=== PATIENT | female | born 1950 | race African-American/Black ===

== ENCOUNTER 2017-04-18 15:30 | Inpatient (IN) ==
[2017-04-18] MEDS ORDERED: NITROGLYCERIN 2% OINT 1 INCH/GM PACK TOP STA ×2 (15:49→18:57)
[2017-04-18] MEDS ORDERED: ONDANSETRON 4 MG/2 ML VIAL IV PRN (15:49)
[2017-04-18] MEDS ORDERED: ASPIRIN 325 MG TABLET PO STA (15:49)
--- NOTE | 2017-04-18 15:52 | EKG Report ---
Stationary ECG Study [facility] ER Test Date: 04/18/2017 3:36:52 PM Pat Name: ASHLEY MELGAR Department: Room: Gender: F Saw Filer: : 1950 Requested by: Jacky Barr Order Number: [id number] Reading MD: DM MARTE Intervals [place] Rate: 80 P: 49 KS: 152 QRS: -6 QRSD: 108 T: 126 QT: 397 QTc: 433 Interpretive Statements SINUS RHYTHM LEFT VENTRICULAR HYPERTROPHY AND ST-T CHANGE INFERIOR MYOCARDIAL INFARCTION, PROBABLY OLD Electronically Signed On 04-18-17 22:33:45 CDT by DM MARTE [email or web address]
[2017-04-18] MEDS ORDERED: NITROGLYCERIN 2% OINT 1 INCH/GM PACK TOP ONE ×2 (15:54→18:31)
[2017-04-18] MEDS ORDERED: ASPIRIN 325 MG TABLET ONE (15:54)
--- NOTE | 2017-04-18 15:54 | Emergency Department Note ---
Declan Gardner Manpreet, am scribing for, and in the presence of, Jacky Hatfield MD 15: 51. Alysia Gardner James D, MD, personally performed the services described in this documentation, ascribed by Demond Manriquez in my presence, and it is both accurate and complete 553 . Arrival - Arrival Chief Complaint: Abdominal / Flank Pain Stated Complaint: upper abd pain and left rib pain ED Nursing Triage Note: Upper abd pain and left rib pain onset x 30 min [employer] - pt had fentanyl 100mcg per EMS - pt denies fall - pt states that she is having some SOB and has been taking some cough and congestion Mode of Arrival: Stretcher Limitations: No Limitations Source: Patient - History of Present Illness HPI Narrative: Pt is a 66 y/o female who is brought to the ED via EMS with CC of CP that began 1100 this AM when she was just sitting down at home. Pt states the pain "goes all over" with tightness and c/o SOB. Pt has had heart stents placed in the past. Pt's PCP is Dr. Edwards. Pt denies any N/V/D, fever, or chills. No other pains/complaints reported to the ED. Onset (ago): hour(s) (11 AM) Consistency: constant Quality: other ("Tightness") Date of Last Menstrual Period: catrachito Allergies/Adverse Reactions: Allergies Allergy/AdvReac Type Severity Reaction Status Date / Time morphine Allergy Unknown/Unable Verified 03/08/17 18:18 to obtain Penicillins Allergy Unknown/Unable Verified 03/08/17 18:18 to obtain Home Medications: Home Medications Medication Instructions Recorded Confirmed Type Fluticasone 50 Mcg Nasal Jackson 1 spray BOTH NARES DAILY 03/16/15 03/08/17 History [Flonase Nasal Jackson] Pantoprazole Tab [Protonix Tab] 40 mg PO AC SUPPER 03/16/15 03/08/17 History hydroCHLOROthiazide 25 mg PO DAILY 04/08/16 03/08/17 History [Hydrochlorothiazide] Aspirin EC Tab 81 mg PO DAILY 09/14/16 03/08/17 History Atorvastatin [Lipitor] 20 mg PO BEDTIME 09/14/16 03/08/17 History Insulin Detemir [Levemir] 25 units SUBCUT BEDTIME 09/14/16 03/08/17 History Sertraline HCl 100 mg PO DAILY 09/14/16 03/08/17 History Valsartan 320 mg PO DAILY 09/14/16 03/08/17 History Loratadine Tab [Claritin Tab] 10 mg PO DAILY PRN 01/20/17 03/08/17 History Ondansetron [Ondansetron Odt] 8 mg PO Q4H PRN #10 tab.rapdis 03/08/17 Rx Sulfameth/Trimeth 800-160 Tab 1 tablet PO BID #20 tablet 03/08/17 Rx [Bactrim Ds Tab] hydrALAZINE TAB [Apresoline Tab] 100 mg PO BID 03/08/17 03/08/17 History Review of System - Review of System 12 point system: reviewed and no additional remarkable complaints except as stated - Review of System Constitutional: Absent: chills, diaphoresis, fever Respiratory: Present: respiratory distress, other (Cognestion). Absent: cough, wheezing Cardiovascular: Present: chest pain Gastrointestinal: Absent: abdominal pain, nausea, vomiting, diarrhea Genitourinary female: Absent: dysuria Musculoskeletal: Absent: arm pain, back pain Neurological: Absent: headache, weakness, numbness, paresthesias Medical,Surgical,& Family Hx - Medical History Cardio: History of: Hypertension Neurology: History of: Cerebrovascular Accident Endocrine: History of: Diabetes Mellitus (IDDM), Dyslipidemia Gastrointestinal: History of: GERD Musculoskeletal: History of: Amputation (LEFT BKA) - Family History Family History: Reports;: Family Diabetes, Family Hypertension - Social History Smoking Status: Never smoker Frequency of Alcohol Use: None Type of Drug Use: None Exam Vital Signs: Vital Signs Temperature 98.2 F 04/18/17 15:36 Pulse Rate 79 04/18/17 16:19 Respiratory Rate 20 04/18/17 16:19 Blood Pressure 101/41 04/18/17 16:19 O2 Sat by Pulse Oximetry 99 04/18/17 16:19 GENERAL: This is a well-nourished well-developed chronically ill-appearing black female in no apparent distress. VITAL SIGNS: Reviewed HEENT: Head is atraumatic and normocephalic. Pupils are equal round react to light. Extraocular movements are intact. Oropharynx is benign with moist mucous membranes. NECK: Neck is soft and supple without tenderness. There are no masses. There is no lymphadenopathy. LUNGS: Lungs are clear to auscultation. Chest rises symmetrically. There is no chest wall tenderness. CV: Heart is regular rate and rhythm without murmurs rubs or gallops. ABDOMEN: Abdomen is soft, nontender to palpation. There are no abdominal abnormal masses palpated. There is no organomegaly. Bowel sounds are present and active. SKIN: Skin is warm and dry. No rash. EXTREMITIES: Left BKA. There is no pedal edema. NEUROLOGIC: Awake alert and oriented 4. Cranial nerves II through XII are grossly intact. Motor is 5 over 5 in all extremities bilaterally. Course - Consultations Consultation #1: Discussed with hospitalist. Patient will be admitted to their service. Time: 17:28 Results - Labs CBC & BMP: 04/18/17 16:19 04/18/17 16:19 Lab Results: I have reviewed the patients labs Labs: Laboratory Tests 04/18/17 16:19 Troponin I < 0.015 - EKG EKG results: interpreted by ERMD - Impressions EKG: Normal sinus rhythm with a rate of 80, LVH, old inferior DE. - Diagnostic Findings Procedure: Chest x-ray: image reviewed by me (Atelectatic changes of the lower lobes bilaterally.) Disposition Clinical Impression: Chest pain, Essential hypertension, CKD (chronic kidney disease) Case discussed with: patient Disposition: Still a Patient Condition: Stable Time of Disposition: 17:28
--- NOTE | 2017-04-18 16:11 | XRay Report ---
History: Chest pain Date: 04/18/2017 Study: Chest x-ray AP portable Comparison exam: March 08, 2017 There is continued cardiomegaly. The mediastinal contours are unchanged. The pulmonary vasculature is slightly prominent, though the exam was performed in shallow inspiration. There is some platelike atelectatic change in the lung bases similar to the previous exam. There is no obvious new or worsening infiltrate. There is no gross pleural effusion. Osseous structures are similar. Impression: Cardiomegaly without overt CHF. Evaluation of the pulmonary vasculature is difficult to evaluate because of shallow inspiration. Platelike atelectasis in the lung bases similar to the previous study PROCEDURE INTERPRETED AT [facility] DEPARTMENT OF RADIOLOGY Final Report Signed by: Dr. Roopa Torres
[2017-04-18 16:29] LABS: Basophils # 0.1 10*3/uL (0.0-0.2); Basophils % 0.9 % (0.0-0.8); Eosinophils # 0.3 10*3/uL (0.0-0.87); Eosinophils % 4.3 % (0.00-10.9); Hematocrit 32.7 VOL% (35.7-47.0); Hemoglobin 10.7 GM/DL (12.0-16.0); Immature Granulocytes % 0.3 %; Immature Granulocytes Absolute 0.02 #; Lymphocytes % 31.3 % (21.3-54.2); Mean Corpuscular HGB Conc 32.7 GM/DL (32-36); Mean Corpuscular Hemoglobin 29 PG (27-34); Mean Corpuscular Volume 89.6 FL (87-102); Mean Platelet Volume 11.2 FL (9.6-12.0); Monocytes # 0.4 10*3/uL (0.11-0.8); Neutrophils # 3.7 10*3/uL (1.4-7.4); Neutrophils % 57.2 % (38.7-73.9); Platelet Count 137 T/CUMM (130-400); Red Blood Count 3.65 MC/CUMM (3.8-5.5); Red Cell Distribution Width 13.4 % (9.3-17.3); White Blood Count 6.5 T/CUMM (4-12)
[2017-04-18 16:40] LABS: PT Patient Result 11.1 SECS; Partial Thromboplastin Time 29.1 SECS (0-40)
[2017-04-18 16:48] LABS: Albumin 3.6 G/DL (3.4-5.0); Bilirubin,Total 0.4 MG/DL (0.2-1.0); Calcium 8.7 MG/DL (8.5-10.1); Osmolality,Calculated 293.3 MOS/KG (273-304); Total Protein 7.7 G/DL (6.4-8.3)
--- NOTE | 2017-04-18 17:46 | XRay Report ---
History: Chest pain Date: 04/18/2017 at 5:07 PM Study: Chest x-ray AP portable Comparison exam: 04/18/2017 at 3:54 PM There is continued mild cardiomegaly. The mediastinal contours are unchanged. The exam was performed in shallow inspiration. There is strandy atelectatic change in the lower lungs, left more than right, as before. There is no gross pleural effusion. Osseous structures are unchanged. Impression: Continued left greater than right bibasilar atelectasis. Cardiomegaly without overt CHF. Shallow breath PROCEDURE INTERPRETED AT [facility] DEPARTMENT OF RADIOLOGY Final Report Signed by: Dr. Roopa Torres
--- NOTE | 2017-04-18 18:40 | Hospitalist History & Physical ---
<Noah Petty - Last Filed: 04/18/17 18:47> History of Present Illness Home Medications Medication Instructions Recorded Confirmed Type Pantoprazole Tab [Protonix Tab] 40 mg PO AC SUPPER 03/16/15 04/18/17 History hydroCHLOROthiazide 25 mg PO QAM 04/08/16 04/18/17 History [Hydrochlorothiazide] Aspirin EC Tab 81 mg PO QAM 09/14/16 04/18/17 History Atorvastatin [Lipitor] 20 mg PO BEDTIME 09/14/16 04/18/17 History Insulin Detemir [Levemir] 25 units SUBCUT BEDTIME 09/14/16 04/18/17 History Sertraline HCl 100 mg PO QAM 09/14/16 04/18/17 History Valsartan 320 mg PO QAM 09/14/16 04/18/17 History Loratadine Tab [Claritin Tab] 10 mg PO DAILY PRN 01/20/17 04/18/17 History hydrALAZINE TAB [Apresoline Tab] 100 mg PO BID 03/08/17 04/18/17 History Allergies Allergy/AdvReac Type Severity Reaction Status Date / Time morphine Allergy Unknown/Unable Verified 03/08/17 18:18 to obtain Penicillins Allergy Unknown/Unable Verified 03/08/17 18:18 to obtain Medical,Surgical,& Family Hx - Medical History Cardio: History of: ND - Surgical History Cardiac Surgeries: Sugical HX of: Cardiac Catheterization - Social History Marital Status: Single Lives With:: Alone Functional capacity: wheelchair bound - Constitutional Constitutional: Present: fatigue, lethargy, weakness. Absent: headache(s) - EENT Eyes: Absent: blurry vision, loss of vision Nose, mouth and throat: Absent: headache(s), sinus pressure - Cardiovascular Cardiovascular: Present: chest pain at rest, chest pain with activity. Absent: dyspnea, edema - Respiratory Respiratory: Absent: cough, wheezing, pain on inspiration - Gastrointestinal Gastrointestinal: Absent: abdominal pain, bloating, diarrhea, nausea - Genitourinary Genitourinary: Absent: difficulty urinating, hematuria - Musculoskeletal Musculoskeletal: Present: limited range of motion, muscle weakness - Neurological Neurological: Present: abnormal gait (Lt BKA, prosthesis and wheelchair), numbness - Psychiatric Psychiatric: Absent: anxiety - Endocrine Endocrine: Present: fatigue. Absent: cold intolerance, heat intolerance - Hematologic/Lymphatic Hematologic/Lymphatic: Absent: easy bleeding, easy bruising Exam - Constitutional Vitals: Period Temp Pulse Resp BP Sys/Cueva Pulse Ox Last 24 Hr 98.2 F-98.2 F 75-97 20-20 101-193/41-91 99-100 Results - Labs CBC & BMP: 04/18/17 16:19 04/18/17 16:19 <WhiteLakesha R - Last Filed: 04/18/17 19:33> Assessment and Plan (1) Left-sided weakness Status: Acute Assessment and plan: MRI of brain, cont aspirin Current Visit: Yes (2) Shortness of breath Status: Acute Assessment and plan: Is complaining to nursing about left-sided rib pain will order rib series, will order BNP and echo Current Visit: Yes (3) Anemia Status: Acute Assessment and plan: We will monitor, need to guaiac stools Current Visit: Yes (4) Diabetes mellitus Status: Chronic Assessment and plan: Hgb A1c, insulin sliding scale Current Visit: No Qualifiers: Diabetes mellitus type: type 2 (5) Chest pain Status: Acute Assessment and plan: Serial troponin and EKG Current Visit: Yes (6) Essential hypertension Status: Acute Assessment and plan: Restart home meds Current Visit: Yes (7) CKD (chronic kidney disease) Status: Acute Assessment and plan: Ultrasound renal Current Visit: Yes History of Present Illness Chief complaint: chest pain History of present illness: Ms. Arriaga is a 66 year old female brought to the ED via EMS with CC of CP that began 1100 this AM when she was just sitting down at home eating. Patient reports started in her abdomen and radiated to her chest. Patient rather lethargic and not readily answering questions. Daughter granddaughter is at bedside. 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 Patient is supposedly had multiple heart stents in the past and sees Dr. Edwards is her primary care physician. She reports some shortness of breath. We learned from nursing that they applied Nitropaste and her blood pressure dropped. Her chest pain is come back when the Nitropaste was removed and will give asked them to put another half inch on. She does complain of shortness of breath she also complained of some left- sided rib pain and was given fentanyl in the ambulance. Patient is morbidly obese and probably has some sleep apnea issues. She is not forthright in her answers and is considered a poor historian at this time. Medical,Surgical,& Family Hx - Medical History Cardio: History of: Hypertension Neurology: History of: Cerebrovascular Accident Endocrine: History of: Diabetes Mellitus (IDDM), Dyslipidemia Gastrointestinal: History of: GERD Musculoskeletal: History of: Amputation (LEFT BKA) - Family History Family History: Reports;: Family Diabetes, Family Hypertension - Social History Smoking Status: Never smoker Frequency of Alcohol Use: None Type of Drug Use: None Exam - Constitutional Vitals: Period Temp Pulse Resp BP Sys/Cueva Pulse Ox Last 24 Hr 98.2 F-98.2 F 75-97 20-20 101-193/41-91 99-100 General appearance: mild distress, over weight - Head Head exam: Present: normal inspection, normocephalic - Eye Eye exam: Present: EOMI. Absent: scleral icterus Pupils: Present: WHITNEY, normal accommodation - ENT ENT exam: Present: normal exam, normal external ear exam - Neck Neck exam: Absent: lymphadenopathy, thyromegaly - Respiratory Respiratory exam: Present: clear to auscultation bilaterally, decreased breath sounds. Absent: rhonchi, wheezes - Cardiovascular Cardiovascular exam: Present: regular rate and rhythm. Absent: systolic murmur - GI/Abdominal GI/Abdominal exam: Present: normal bowel sounds, soft. Absent: tenderness - Extremities Exam Extremities exam: Present: normal inspection, normal capillary refill - Neurological Exam Neurological exam: Present: alert, oriented X3, motor sensory deficit (Left- sided weakness), reflexes normal - Psychiatric Psychiatric exam: Present: depressed, flat affect - Skin Skin exam: Present: normal color, warm Results - Labs CBC & BMP: 04/18/17 16:19 04/18/17 16:19 Lab Results: I have reviewed the past 24 hour labs - EKG EKG shows: sinus rhythm (Q waves in lead III) - Diagnostic Findings Procedure: Chest x-ray: report reviewed by me (Bibasilar atelectasis)
[2017-04-18 18:59] LABS: Risk Ratio 3.55; VLDL CHOLESTEROL 20.4 MG/DL
--- NOTE | 2017-04-18 19:45 | XRay Report ---
History: Left-sided chest pain Date: 04/18/2017 Study: Left RIBS AP and oblique Comparison exam: No previous left rib series available There is no acute left rib fracture. There is no obvious pneumothorax or pleural effusion on the left. There are moderate-sized cervical ribs bilaterally. Impression: No acute left rib abnormality. Cervical ribs PROCEDURE INTERPRETED AT [facility] DEPARTMENT OF RADIOLOGY Final Report Signed by: Dr. Roopa Torres
--- NOTE | 2017-04-18 19:49 | Ultrasound Report ---
History: Renal failure Date: 04/18/2017 Study: Renal ultrasound bilateral, kidneys only Comparison exam: No previous recent similar study Real-time ultrasound images are captured and archived. The right kidney measures 97 x 44 x 46 mm; the left kidney measures 86 x 48 x 48 mm. There is no hydronephrosis or abnormal perinephric fluid. The renal parenchyma is of slightly increased echogenicity diffusely compared to the liver. There is no focal renal mass. Impression: There is evidence of some diffuse mild medical renal parenchymal disease. No significant abnormality otherwise PROCEDURE INTERPRETED AT [facility] DEPARTMENT OF RADIOLOGY Final Report Signed by: Dr. Roopa Torres
[2017-04-18] MEDS ORDERED: INSULIN GLARGINE 100 UNIT/ML SUBCUT SCH (21:00)
[2017-04-18] MEDS ORDERED: ATORVASTATIN 20 MG TABLET PO SCH (21:00)
[2017-04-18] MEDS ORDERED: ENOXAPARIN 30 MG/0.3 ML SYRINGE SUBCUT SCH (21:00)
[2017-04-18] MEDS: PANTOPRAZOLE 40 MG TABLET PO SCH (22:31)
[2017-04-18] MEDS: SODIUM CHLORIDE 0.9% 1,000 ML IV SCH (22:41)
[2017-04-19] MEDS: SODIUM CHLORIDE 0.9% 1,000 ML IV SCH ×3 (03:12→16:53)
[2017-04-19 07:39] LABS: Basophils # 0.1 10*3/uL (0.0-0.2); Basophils % 1.2 % (0.0-0.8); Eosinophils # 0.3 10*3/uL (0.0-0.87); Eosinophils % 5.6 % (0.00-10.9); Hematocrit 30.2 VOL% (35.7-47.0); Hemoglobin 9.9 GM/DL (12.0-16.0); Immature Granulocytes % 0.4 %; Immature Granulocytes Absolute 0.02 #; Lymphocytes # 1.9 10*3/uL (1.4-4.0); Lymphocytes % 36.7 % (21.3-54.2); Mean Corpuscular HGB Conc 32.8 GM/DL (32-36); Mean Corpuscular Hemoglobin 30 PG (27-34); Mean Corpuscular Volume 90.1 FL (87-102); Mean Platelet Volume 10.8 FL (9.6-12.0); Monocytes # 0.5 10*3/uL (0.11-0.8); Monocytes % 9.5 % (1.7-12.7); Neutrophils # 2.4 10*3/uL (1.4-7.4); Neutrophils % 46.6 % (38.7-73.9); Platelet Count 122 T/CUMM (130-400); Red Blood Count 3.35 MC/CUMM (3.8-5.5); Red Cell Distribution Width 13.5 % (9.3-17.3); White Blood Count 5.2 T/CUMM (4-12)
[2017-04-19 08:04] LABS: Calcium 8.5 MG/DL (8.5-10.1); Osmolality,Calculated 296.7 MOS/KG (273-304); Potassium 4.6 MMOL/L (3.5-5.1)
[2017-04-19] MEDS ORDERED: ASPIRIN EC 81 MG TABLET PO SCH (09:00)
--- NOTE | 2017-04-19 12:49 | Magnetic Resonance Report ---
MRI brain without contrast Indication: Left side weakness Comparison: None available Technique: Axial sagittal and coronal imaging of the brain is performed without contrast. T1, T2, FLAIR and diffusion weighted sequences are performed. Findings: No evidence of restricted diffusion seen. No evidence of intracranial hemorrhage, mass, mass effect or midline shift is seen. There is moderate diffuse cerebral atrophy. There are areas of white matter T2 signal hyperintensity in both cerebral hemispheres, likely chronic microvascular disease. Remaining brain parenchyma has normal signal and differentiation. The ventricles and cisterns are appropriate in caliber. Posterior fossa, mid brain and pituitary gland appear within normal limits. No evidence of cranial or skull base abnormality seen. Impression: No evidence of acute infarct or acute process demonstrated. PROCEDURE INTERPRETED AT [facility] DEPARTMENT OF RADIOLOGY Final Report Signed by: Dr. Kimo Quigley
--- NOTE | 2017-04-19 14:02 | ECHO Report ---
Denisse Arriaga 04/19/2017 Exam Date: 08:12 Referring Physician: Britt Mayen Technologist: JAYA Age: 66 Ht (in): 62 Wt (lb): 188 FExam Location: [facility] Gender: Echo [id number]: Chest pain, unspecified, Weakness, Indications:Chronic fatigue, unspecified, Shortness of breath, Anemia, IDDM, Chronic kidney disease, unspecified BP: 134 / 62 HR: 75 SinusRhythm: Technical Quality: IMPRESSIONS Normal left ventricular cavity size. Mild concentric left ventricular hypertrophy. Left ventricular ejection fraction is estimated at 65%. Grade 1 diastolic dysfunction. The left atrium is mildly enlarged. Aortic valve sclerosis, without stenosis. No insufficiency Mild pulmonary hypertension. MEASUREMENTS (Male / Female) Normal Values 2D ECHO LV Diastolic Diameter PLAX 4.1 cm 4.2 - 5.9 / 3.9 - 5.3 cm LV Systolic Diameter PLAX 2.8 cm LV Fractional Shortening PLAX 30.5 % IVS Diastolic Thickness 1.1 cm 0.6 - 1.0 / 0.6 - 0.9 cm LVPW Diastolic Thickness 1.1 cm 0.6 - 1.0 / 0.6 - 0.9 cm RV Internal Dim ED PLAX 2.7 cm Aortic Root Diameter 3.1 cm LA Systolic Diameter LX 3.7 cm 3.0 - 4.0 / 2.7 - 3.8 cm DOPPLER TR Peak Velocity 301.0 cm/s TR Peak Gradient 36.2 mmHg FINDINGS Left Ventricle Normal left ventricular cavity size. Mild concentric left ventricular hypertrophy. Left ventricular ejection fraction is estimated at 65%. Grade 1 diastolic dysfunction. Right Ventricle The right ventricle is normal in size and function. Right Atrium The right atrium is normal in size. Left Atrium The left atrium is mildly enlarged. Mitral Valve Morphologically normal mitral valve without significant stenosis or prolapse. There is no mitral regurgitation. Aortic Valve Aortic valve sclerosis, without stenosis. No insufficiency Tricuspid Valve Morphologically normal tricuspid valve. Mild tricuspid valve regurgitation. Tricuspid regurgitation velocities suggest a PAP of 46 mmHg. Pulmonic Valve Morphologically normal pulmonic valve without significant stenosis. There is no pulmonic regurgitation. Pericardium Normal pericardium without effusion. Aorta Normal ascending aorta dimension. Harsha Everett (Electronically Signed) 19 April 2017 Final Date: 14:01
--- NOTE | 2017-04-19 15:07 | Gastrointestinal Consult Note ---
Assessment and Plan (1) Dysphagia, pharyngoesophageal Status: Acute Assessment and plan: The patient does have some difficulty swallowing and likely has atypical chest pain as a result of either spasm or esophagitis. We will assess this on Monday , 04/21/17 hopefully after cardiology is completed their evaluation. If she is not placed on interim anticoagulation we can certainly consider doing a esophageal dilation, likely to 57 Uzbek after ruling out esophageal cancer as a potential cause for her dysphagia. Other possibilities include esophageal spasm, reflux esophagitis, eosinophilic esophagitis and Schatzki's ring. Further recommendations post upper endoscopy and colonoscopy to occur Monday. Prep instructions written. Risks and benefits the above procedure were reviewed with the patient previously include but are not limited to: Bleeding, infection, perforation, cardiac and pulmonary compromise. Risk of perforation increases with dilation. Current Visit: Yes (2) Generalized abdominal pain Status: Acute Assessment and plan: This patient does have what sounds like classic variant irritable bowel syndrome with mild alternating diarrhea and constipation. Will be performing colonoscopy mostly for colorectal cancer screening purposes and to see if we can find a cause for the patient's mild anemia. Her hematocrit is about 30%. Certainly the patient's low-grade pain may be associated with this IBS. Because of her diarrhea we might consider doing routine biopsies to the colon-- we will have to see what level of inflammation is present. Current Visit: Yes (3) Anemia Status: Acute Assessment and plan: Hematocrit is 30.2 with hemoglobin of 9.9, I have asked the nursing staff to place an NG tube for purposes of prepping patient tomorrow if needed. Given her symptoms I suspect it will be. She will be given a GoLYTELY prep in order to check the colon completely. Current Visit: Yes (4) Atypical chest pain Status: Acute Assessment and plan: As mentioned above the patient may have esophageal spasm, reflux esophagitis, eosinophilic esophagitis versus Schatzki's ring, performed upper endoscopy with dilation as needed. Current Visit: Yes History of Present Illness Chief complaint: Dysphagia and anemia History of present illness: Ms. Arriaga is a 66 year old female who was seen in the office last on 02/24/17 and who was complaining at that time of generalized abdominal pain mostly in the epigastric and right upper quadrant regions as well as dysphagia that have been going on for approximately 4 years. She had a previous upper endoscopy done on 05/01/14 which revealed a hiatal hernia mild distal esophagitis and esophageal stricture that was dilated to 52 Uzbek by single pass Mandujano dilator. She did get some significant relief from the dilation and was placed on pantoprazole. She has had no reflux symptoms lately but feels that food is getting stuck in her throat with increasing regularity which has been worsening over the last 2 years. Patient also has diarrhea with multiple liquid stools starting approximately one week ago but no blood or melena. The patient had a previous colonoscopy done by Dr. Torres back on 10/05/15 which was notable for poor bowel prep was otherwise unremarkable aside from some small internal hemorrhoids. She had been to the emergency room as recently as 01/20/17 and was found to be mildly anemic with hematocrit of 34.0 and hemoglobin of 10.8. Platelet count was 1:30 which is lower limits of normal and white blood cell count was 7.0. The patient is currently being followed by Dr. Ashley Edwards as an outpatient. Her hematocrit here has dropped down to 30.2 with hemoglobin 9.9 , white blood cell count 5.2 and platelets that are now down to 122 suggestive of cirrhosis or ITP. The patient's LFTs are just about completely normal. This patient was placed on Protonix 40 mg daily starting on 02/24/17 and was due to be scheduled for colonoscopy and EGD. She apparently missed her endoscopic appointments. She feels difficulty with swallowing past her throat. Additionally she states that she has chest pain that feels like a large balloon inflating in her left chest and makes her arms tingle. She is being worked up by cardiology now. She also states that she is having some blood in her stools but was guaiac negative when I saw her in the office back in February, have not rechecked her today. Her hematocrit is comparable to what it was at that time. We will be performing both EGD and colonoscopy on Monday, provided she is not aggressively anticoagulated in the interim. Home Medications Medication Instructions Recorded Confirmed Type Pantoprazole Tab [Protonix Tab] 40 mg PO AC SUPPER 03/16/15 04/19/17 History hydroCHLOROthiazide 25 mg PO QAM 04/08/16 04/19/17 History [Hydrochlorothiazide] Aspirin EC Tab 81 mg PO QAM 09/14/16 04/19/17 History Atorvastatin [Lipitor] 20 mg PO BEDTIME 09/14/16 04/19/17 History Insulin Detemir [Levemir] 25 units SUBCUT BEDTIME 09/14/16 04/19/17 History Sertraline HCl 150 mg PO QAM 09/14/16 04/19/17 History Valsartan 320 mg PO QAM 09/14/16 04/19/17 History Loratadine Tab [Claritin Tab] 10 mg PO DAILY PRN 01/20/17 04/19/17 History hydrALAZINE TAB [Apresoline Tab] 100 mg PO BID 03/08/17 04/19/17 History Allergies Allergy/AdvReac Type Severity Reaction Status Date / Time morphine Allergy Unknown/Unable Verified 03/08/17 18:18 to obtain Penicillins Allergy Unknown/Unable Verified 03/08/17 18:18 to obtain Medical,Surgical,& Family Hx - Medical History Cardio: History of: Hypertension, [place] Neurology: History of: Cerebrovascular Accident Endocrine: History of: Diabetes Mellitus (IDDM), Dyslipidemia Renal: History of: Renal Failure Gastrointestinal: History of: GERD Musculoskeletal: History of: Amputation (LEFT BKA) - Surgical History Cardiac Surgeries: Sugical HX of: Cardiac Catheterization (W/ MULTIPLE STENTS) - Family History Family History: Reports;: Family Diabetes, Family Hypertension - Social History Smoking Status: Never smoker Frequency of Alcohol Use: None Type of Drug Use: None Review of systems: Constitutional: Denies fever, chills, but positive for recent nausea, and vomiting Eyes: Denies dry eyes, and scleral icterus HENT: She does have occasional headaches Cardiovascular: She admits to some acute chest pain but no claudication Respiratory: Denies shortness of breath, wheezing, and difficulty breathing, denies cough Gastrointestinal: As noted in the HPI Genitourinary: Denies dysuria and hematuria Neurologic: Denies vision loss, and loss of sensation Musculoskeletal: Denies joint swelling, but admits to joint stiffness, and muscular weakness Psychiatric: Denies depression and odalis symptoms, but seems to have some dementia. Heme-Lymph: Denies easy bruising, lymph node enlargement or tenderness, night sweats, excessive bleeding Allergies-immunologic: Denies pruritus and rhinorrhea Exam - Constitutional Vitals: Period Temp Pulse Resp BP Sys/Cueva Pulse Ox Last 24 Hr 97.5 F-98.8 F 72-97 16-20 101-193/41-91 97-100 Exam: Constitutional: Well-developed, well-nourished, alert, and in no acute distress Head and face: Head: Normocephalic atraumatic Eyes: Conjunctiva without injection, no gross scleral icterus, pupils equal and round bilaterally Ears: Intact to conversation in both ears Nose: External appearance is normal, nares patent Mouth: Oral mucous membranes moist without erythema dentition noted to be without erosion Neck: Normal appearance, no masses or tenderness, trachea midline Thyroid: Gland midline and appropriate size for age Respiratory: Normal respiratory effort, clear to auscultation without wheezes, rhonchi or rales Cardiovascular: Regular rate and rhythm, normal S1, S2, the exam is without rubs, murmurs or gallops. Gastrointestinal: The patient does have some mild epigastric and left lower quadrant tenderness to palpation, normal active bowel sounds, tone normal without rigidity or guarding, no masses present, no hepatomegaly, no spleen tip felt. No rectal exam obtained. Lymphatic: Neck without adenopathy, axilla without lymphadenopathy present Musculoskeletal: Right lower extremity without evidence of edema note that this patient has a left-sided BKA, the stump appears well-healed and without breakdown/excessive edema. Skin and subcutaneous tissue: No rashes or ulcerations noted, normal skin turgor, digits and nails without clubbing/cyanosis/deformities. Neurologic: The patient is grossly oriented to person place and time, cranial nerves show tongue movements are normal with normal tongue extrusion midline, light touch sensation is intact. Psychiatric: No hallucinations or delusions are present, does not appear depressed Results - Labs CBC & BMP: 04/19/17 07:27 04/19/17 07:27
--- NOTE | 2017-04-19 16:48 | Hospitalist Progress Note ---
Assessment and Plan (1) Left-sided weakness Status: Acute Assessment and plan: MRI of brain negative for any evidence of stroke. Will DC aspirin due to anemia. Current Visit: Yes (2) Shortness of breath Status: Acute Assessment and plan: Echocardiogram showed a normal EF with grade 1 diastolic dysfunction. Chest x- ray shows no evidence of pulmonary edema, BNP is normal. Current Visit: Yes (3) Anemia Status: Acute Assessment and plan: Dr. Khan feels patient will need a colonoscopy and an EGD. Patient will most likely not drink all of the prep. Dr. Khan feels she should have an NG to get all of her needed prep. Current Visit: Yes (4) Diabetes mellitus Status: Chronic Assessment and plan: Hgb A1c 7.3, continue insulin sliding scale, will hold Lantus at bedtime due to colonoscopy. Current Visit: No Qualifiers: Diabetes mellitus type: type 2 (5) Chest pain Status: Acute Assessment and plan: Cardiology has seen patient and believes her chest pain is atypical. They will do a stress test in the morning. Patient most likely has chest pain secondary to dysphasia. Dr. Khan would like to do an EGD on Monday. Continue Protonix 40 mg twice daily Current Visit: Yes (6) Essential hypertension Status: Chronic Assessment and plan: Controlled Current Visit: Yes (7) CKD (chronic kidney disease) Status: Chronic Assessment and plan: Ultrasound renal shows medical renal disease consistent with chronic stage III renal disease Current Visit: Yes Hospitalist: Subjective Interval history: Patient has spoke with nursing and reported to her that she had difficulty swallowing. Dr. Cardona was supposed to see her as an outpatient we have asked him to come and see her as an inpatient and he agrees she has dysphasia and probably needs dilation for possible stricture. He also did an evaluation of this generalized abdominal pain that she is speaking out of and it sounds more like irritable bowel. Dr. Cardona is asked nursing to place an NG to prep her with GoLYTELY for colonoscopy. Exam - Constitutional Vitals: Period Temp Pulse Resp BP Sys/Cueva Pulse Ox Last 24 Hr 97.5 F-99.4 F 72-106 16-20 123-179/58-89 96-100 Exam: Heart Rate-[RRR] Lungs-[CTAB but diminished] GI-[+bs soft, nontender, obese] Ext-[no edema] Neuro [Motor 5/5], [alert and oriented times 2] psych [normal mood and affect] General [no acute distress] Results - Labs CBC & BMP: 04/19/17 07:27 04/19/17 07:27 Lab Results: I have reviewed the past 24 hour labs - Diagnostic Findings Procedure: Chest x-ray: report reviewed by me (No evidence of CHF), MRI: report reviewed by me (MRI of the brain shows no evidence of acute infarct), Ultrasound : report reviewed by me (Renal shows evidence of diffuse medical renal disease no hydronephrosis, echocardiogram showed an EF of 65% with grade 1 diastolic dysfunction and PA P of 46)
[2017-04-19] MEDS: SERTRALINE 100 MG TABLET PO SCH (16:52)
[2017-04-19] MEDS: PANTOPRAZOLE 40 MG TABLET PO SCH ×2 (16:52→22:54)
--- NOTE | 2017-04-19 17:00 | Neurology Consult Note ---
History of Present Illness History of present illness: 6 years old -[place] lady admitted to the hospital with chest pain. 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 Patient is supposedly had multiple heart stents in the past and sees Dr. Edwards is her primary care physician. There was a question that she has some left-sided weakness however she has left AKA in the past. Patient denies any weakness. She denies any headache nausea vomiting vision difficulties speech difficulties. MRI of the brain reveals no acute abnormalities. She is on aspirin a day Home Medications Medication Instructions Recorded Confirmed Type Pantoprazole Tab [Protonix Tab] 40 mg PO AC SUPPER 03/16/15 04/19/17 History hydroCHLOROthiazide 25 mg PO QAM 04/08/16 04/19/17 History [Hydrochlorothiazide] Aspirin EC Tab 81 mg PO QAM 09/14/16 04/19/17 History Atorvastatin [Lipitor] 20 mg PO BEDTIME 09/14/16 04/19/17 History Insulin Detemir [Levemir] 25 units SUBCUT BEDTIME 09/14/16 04/19/17 History Sertraline HCl 150 mg PO QAM 09/14/16 04/19/17 History Valsartan 320 mg PO QAM 09/14/16 04/19/17 History Loratadine Tab [Claritin Tab] 10 mg PO DAILY PRN 01/20/17 04/19/17 History hydrALAZINE TAB [Apresoline Tab] 100 mg PO BID 03/08/17 04/19/17 History Allergies Allergy/AdvReac Type Severity Reaction Status Date / Time morphine Allergy Unknown/Unable Verified 03/08/17 18:18 to obtain Penicillins Allergy Unknown/Unable Verified 03/08/17 18:18 to obtain 12 point system: reviewed and no additional remarkable complaints except as stated Medical,Surgical,& Family Hx - Medical History Cardio: History of: Hypertension, [place] Neurology: History of: Cerebrovascular Accident Endocrine: History of: Diabetes Mellitus (IDDM), Dyslipidemia Renal: History of: Renal Failure Gastrointestinal: History of: GERD Musculoskeletal: History of: Amputation (LEFT BKA) - Surgical History Cardiac Surgeries: Sugical HX of: Cardiac Catheterization (W/ MULTIPLE STENTS) - Family History Family History: Reports;: Family Diabetes, Family Hypertension - Social History Smoking Status: Never smoker Frequency of Alcohol Use: None Type of Drug Use: None Exam - Constitutional Vitals: Period Temp Pulse Resp BP Sys/Cueva Pulse Ox Last 24 Hr 97.5 F-99.4 F 72-106 16-20 123-179/58-89 96-100 Exam: GENERAL: Patient is in no acute distress. NECK: Neck is supple. There is no JVD. No carotid bruits present. No thyroid masses. CVS: First and second heart sounds are normal. There is no S3 present. Regular rate and rhythm. RESPIRATORY: Lungs are clear to auscultation without any rales or rhonchi. ABDOMEN: Soft and non-tender. Bowel sounds are present. There is no hepatosplenomegaly. EXT: There is no palpable edema. Peripheral pulses are present. Skin: No rashes Central Nervous system: General: Alert, awake and Oriented x 3 Speech: Fluent Comprehension: Intact and normal Facial expressions: Normal Cranial Nerves: CN1/Olfactory: Normal CN II/ Optic: Normal, Visual Roberts unreliable CN III, and : WHITNEY & EOMI CN V: Normal & intact CN VII: face is symmetric CNVIII: Normal CN XI/X/XI/XII: Intact and Normal Motor: Bulk and Tone is normal. Strength in the right 4-5/5 Strength in the left AKA Sensory: Grossly intact for all the modalities of PP, LT and temp sense Reflexes: 1+ and symmetrical Cerebellar function: Normal finger to nose testing. Toes: Equivocal Gait: Not tested Results - Labs CBC & BMP: 04/19/17 07:27 04/19/17 07:27 Assessment and Plan (1) Altered mental status Status: Resolved Assessment and plan: No clear evidence of a stroke, TIAs, epilepsy or seizures. Continue aspirin No new recommendations from neuro standpoint Sign off please call as needed Current Visit: No
--- NOTE | 2017-04-19 17:55 | Cardiology Consult Note ---
Jose Angel Gardner Vanessa, RN, am scribing for, and in the presence of, Harsha Everett MD 17 :55. Assessment and Plan - Time spent with patient Time spent with patient: Greater than 30 minutes (Assessment, planning, documentation, med review) (1) Atypical chest pain Status: Acute Assessment and plan: 66-year-old BF with PMHx HTN, CAD, HLD, IDDM, CKD, CVA, and TIA. Previous PCI of RCA with multiple stents, last one in 2010. Preserved LV function. Now presents with atypical chest pain and some shortness of breath. EKG and cardiac biomarkers have been normal. Echocardiogram this morning is pending. 1. ATYPICAL CP- due history of CAD and risk factors, will obtain nuclear stress test in AM. 2. HTN-well controlled. borderline pulm HTN by echo. Start metoprolol 50 mg PO twice daily 3. HX CAD/PCI-continue ASA. Continue DVT prophylactic dose of Lovenox 4. HLD- LDL 108. Increase atorvastatin to 40 mg PO nightly Current Visit: Yes (2) History of coronary artery disease Status: Chronic Assessment and plan: SEE PLAN OF CARE LISTED ABOVE. Current Visit: Yes (3) History of CVA (cerebrovascular accident) Status: Chronic Assessment and plan: SEE PLAN OF CARE LISTED ABOVE. Current Visit: Yes (4) Anemia Status: Acute Assessment and plan: SEE PLAN OF CARE LISTED ABOVE. Current Visit: Yes (5) CKD (chronic kidney disease) Status: Chronic Assessment and plan: SEE PLAN OF CARE LISTED ABOVE. Current Visit: Yes (6) Essential hypertension Status: Chronic Assessment and plan: SEE PLAN OF CARE LISTED ABOVE. Current Visit: Yes (7) Diabetes mellitus Status: Chronic Assessment and plan: SEE PLAN OF CARE LISTED ABOVE. Current Visit: No Qualifiers: Diabetes mellitus type: type 2 (8) Dyslipidemia Status: Chronic Assessment and plan: SEE PLAN OF CARE LISTED ABOVE. 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 Ms. Arriaga, 66 year old BF, PMHx HTN, diabetes, CAD, dyslipidemia, previous CVA x 3 (lacunar), and TIA, former smoking. PSHx of left AKA. There is reference in previous record patient also has history of schizophrenia and depression. Patient lives alone but apparently visited by a family member daily , and she is essentially wheelchair bound. Previous PCI at [facility] [place] [address] Nieves with PTCA and stenting of mid RCA. Last noted intervention in 2010 for stenting of RCA (in-stent restenosis), preserved LV EF 55-60%. Review of cath report indicates patient had moderate disease of left coronaries but did not undergo intervention. Currently admitted to [facility]'s telemetry unit after presenting to the ED yesterday evening with complaints of pain that started in the abdomen and radiated to the chest earlier in the morning around 11 while at rest and eating lunch. Also had some shortness of breath but no diaphoresis, dizziness, presyncope, nausea, or vomiting. In addition to shortness of breath, reported some left sided rib pain. X-ray was benign. Apparently received some relief of chest and rib pain after Fentanyl and NitroBid patch. This morning, she is resting comfortably and in no acute distress. Reports that yesterday, she experienced sudden left sided chest and epigastric pain which also made her left arm feel "funny and kind of tingling". Cannot further specify. Cannot identify any aggravating or alleviating factors. Says chest pain was constant and lasted "maybe an hour". Did not take OTC meds, but reports she had taken an aspirin much earlier in the morning. She is uncertain if she continued to experience chest discomfort, but she is sure that she did not experience discomfort prior to yesterday morning. Says she routinely uses 3 pillows to sleep on at night and has not had to increase recently. No significant lower extremity edema by exam. Denies recent falls, cough, fever, chills. No abdominal pain, overt bleeding. She is pain-free this morning. EKG benign for acute ischemic finding. Serial troponin levels nondetectable. Stable anemia noted. Electrolytes within acceptable range. Creatinine 2.1 (appears to be near baseline). BP ranging 130s/70s. Echocardiogram obtained earlier this morning and will be reviewed. CC: Lakesha Hill MD - Home Medications and Allergies Home Medications: Home Medications Medication Instructions Recorded Confirmed Type Pantoprazole Tab [Protonix Tab] 40 mg PO AC SUPPER 03/16/15 04/19/17 History hydroCHLOROthiazide 25 mg PO QAM 04/08/16 04/19/17 History [Hydrochlorothiazide] Aspirin EC Tab 81 mg PO QAM 09/14/16 04/19/17 History Atorvastatin [Lipitor] 20 mg PO BEDTIME 09/14/16 04/19/17 History Insulin Detemir [Levemir] 25 units SUBCUT BEDTIME 09/14/16 04/19/17 History Sertraline HCl 150 mg PO QAM 09/14/16 04/19/17 History Valsartan 320 mg PO QAM 09/14/16 04/19/17 History Loratadine Tab [Claritin Tab] 10 mg PO DAILY PRN 01/20/17 04/19/17 History hydrALAZINE TAB [Apresoline Tab] 100 mg PO BID 03/08/17 04/19/17 History Allergies/Adverse Reactions: Allergies Allergy/AdvReac Type Severity Reaction Status Date / Time morphine Allergy Unknown/Unable Verified 03/08/17 18:18 to obtain Penicillins Allergy Unknown/Unable Verified 03/08/17 18:18 to obtain - Constitutional Constitutional: Present: as per HPI - EENT Eyes: Present: as per HPI Ears: Present: as per HPI Nose, mouth and throat: Present: as per HPI - Cardiovascular Cardiovascular: Present: as per HPI - Respiratory Respiratory: Present: as per HPI - Gastrointestinal Gastrointestinal: Present: as per HPI - Genitourinary Genitourinary: Present: as per HPI - Musculoskeletal Musculoskeletal: Present: as per HPI - Neurological Neurological: Present: as per HPI - Psychiatric Psychiatric: Present: as per HPI - Endocrine Endocrine: Present: as per HPI - Hematologic/Lymphatic Hematologic/Lymphatic: Present: as per HPI Medical,Surgical,& Family Hx - Medical History Cardio: History of: CAD, Hypertension, [place] No history of: Cardiac Dysrhythmia, Pacemaker, Valvular Heart Disease Psychological: History of: Psychiatric Problems Neurology: History of: Cerebrovascular Accident, TIA HEENT: History of: Dental Problems Endocrine: History of: Diabetes Mellitus (IDDM), Dyslipidemia No history of: Thyroid Disorder Rheumatology: No history of;: Rheumatoid Arthritis, Systemic Lupus Erythematosus Respiratory: History of: Bronchitis No history of: COPD, Pulmonary Embolism Renal: History of: Renal Failure No history of: Dialysis Gastrointestinal: History of: GERD No history of: Bowel Obstruction, Hemorrhoids, Hepatitis Musculoskeletal: History of: Amputation (LEFT BKA) Hematology: History of: Anemia - Surgical History Cardiac Surgeries: Sugical HX of: Cardiac Catheterization - Family History Family History: Reports;: Family Diabetes, Family Hypertension - Social History Smoking Status: Former smoker Frequency of Alcohol Use: None Type of Drug Use: None Lives With:: Alone Physical Examination Vital Signs Temp Pulse Resp BP Pulse Ox 98.2 F 97 H 20 193/91 100 04/18/17 15:30 04/18/17 15:30 04/18/17 15:30 04/18/17 15:30 04/18/17 15:30 General: Present: No Apparent Distress, Other (obese) HEENT: Present: EOMI, PERRL, Normocephaly, Mucus Membranes Moist. Absent: Jaundice, Pallor Neck: Present: Supple Neck, Midline Trachea, No JVD/HJR, No Masses, No Bruit Cardiac: Present: Reg Rate and Rhythm, No Murmur. Absent: Tachycardia, Bradycardia Lungs: Present: Clear Ascult./Percussion, No Wheeze, Rales, Rhonchi Neuro: Present: Weakness (slight left arm weakness). Absent: Resting Tremor Abdomen: Present: Soft, Active Bowel Sounds, No Masses, No Pulsations/Bruits. Absent: Tender, Firm Skin: Present: Clear, Other (Warm, dry). Absent: Rash, Suspicious Lesions, Bruising Musculoskeletal: Present: No Fluid Collection Extremities: Present: No Clubbing, No Cyanosis, No Edema, Normal Upper Extr. Pulses (2+ bilateral), Left Lower Pulse (Left popliteal 2+), Right Lower Pulse ( DP/PT 1-2+ bilateral), Capillary Refill (Normal), Other (Left below the knee amputation) Result/EKG - Labs CBC & BMP: 04/19/17 07:27 04/19/17 07:27 Lab Results: I have reviewed the past 24 hour labs Labs: Laboratory Results - last 24 hr 04/18/17 04/18/17 04/18/17 16:19 16:19 16:19 WBC 6.5 RBC 3.65 L Hgb 10.7 L Hct 32.7 L MCV 89.6 MCH 29 MCHC 32.7 RDW 13.4 Plt Count 137 MPV 11.2 Neut % (Auto) 57.2 Lymph % (Auto) 31.3 [place] % (Auto) 6.0 Eos % (Auto) 4.3 Baso % (Auto) 0.9 H Neut # (Auto) 3.7 Lymph # (Auto) 2.0 [place] # (Auto) 0.4 Eos # (Auto) 0.3 Baso # (Auto) 0.1 Immature Gran % 0.3 Nucleated RBC % 0.0 Immature Gran # 0.02 Nucleated RBCs # 0.00 Immature Plt Fraction 0.0 INR 1.0 PT Patient/Control Mix 11.1 Circ Anticoag PTT 29.1 Sodium 141 Potassium 5.0 Chloride 111 H Carbon Dioxide 24 Anion Gap 11.0 BUN 43 H Creatinine 2.20 H GFR Calculation 29 BUN/Creatinine Ratio 19.00 Glucose 142 H POC Glucose Hemoglobin A1c Calculated Osmolality 293.3 Calcium 8.7 Total Bilirubin 0.40 AST 20 ALT 19 Alkaline Phosphatase 118 H Troponin I B-Natriuretic Peptide Total Protein 7.7 Albumin 3.6 Globulin 4.1 H Albumin/Globulin Ratio 0.8 L Triglycerides Cholesterol LDL Cholesterol VLDL Cholesterol HDL Cholesterol Heart Disease Risk Ratio Lipase 201.0 04/18/17 04/18/17 04/18/17 16:19 16:19 16:19 WBC RBC Hgb Hct MCV MCH MCHC RDW Plt Count MPV Neut % (Auto) Lymph % (Auto) [place] % (Auto) Eos % (Auto) Baso % (Auto) Neut # (Auto) Lymph # (Auto) [place] # (Auto) Eos # (Auto) Baso # (Auto) Immature Gran % Nucleated RBC % Immature Gran # Nucleated RBCs # Immature Plt Fraction INR PT Patient/Control Mix Circ Anticoag PTT Sodium Potassium Chloride Carbon Dioxide Anion Gap BUN Creatinine GFR Calculation BUN/Creatinine Ratio Glucose POC Glucose Hemoglobin A1c 7.3 H Calculated Osmolality Calcium Total Bilirubin AST ALT Alkaline Phosphatase Troponin I < 0.015 B-Natriuretic Peptide Total Protein Albumin Globulin Albumin/Globulin Ratio Triglycerides 102 Cholesterol 181 LDL Cholesterol 108.0 VLDL Cholesterol 20.4 HDL Cholesterol 51 Heart Disease Risk Ratio 3.55 Lipase 04/18/17 04/18/17 04/18/17 16:19 20:22 21:32 WBC RBC Hgb Hct MCV MCH MCHC RDW Plt Count MPV Neut % (Auto) Lymph % (Auto) [place] % (Auto) Eos % (Auto) Baso % (Auto) Neut # (Auto) Lymph # (Auto) [place] # (Auto) Eos # (Auto) Baso # (Auto) Immature Gran % Nucleated RBC % Immature Gran # Nucleated RBCs # Immature Plt Fraction INR PT Patient/Control Mix Circ Anticoag PTT Sodium Potassium Chloride Carbon Dioxide Anion Gap BUN Creatinine GFR Calculation BUN/Creatinine Ratio Glucose POC Glucose 106 Hemoglobin A1c Calculated Osmolality Calcium Total Bilirubin AST ALT Alkaline Phosphatase Troponin I < 0.015 B-Natriuretic Peptide 87 Total Protein Albumin Globulin Albumin/Globulin Ratio Triglycerides Cholesterol LDL Cholesterol VLDL Cholesterol HDL Cholesterol Heart Disease Risk Ratio Lipase 04/18/17 04/19/17 04/19/17 22:37 07:17 07:27 WBC 5.2 RBC 3.35 L Hgb 9.9 L Hct 30.2 L MCV 90.1 MCH 30 MCHC 32.8 RDW 13.5 Plt Count 122 L MPV 10.8 Neut % (Auto) 46.6 Lymph % (Auto) 36.7 [place] % (Auto) 9.5 Eos % (Auto) 5.6 Baso % (Auto) 1.2 H Neut # (Auto) 2.4 Lymph # (Auto) 1.9 [place] # (Auto) 0.5 Eos # (Auto) 0.3 Baso # (Auto) 0.1 Immature Gran % 0.4 Nucleated RBC % 0.0 Immature Gran # 0.02 Nucleated RBCs # 0.00 Immature Plt Fraction 0.0 INR PT Patient/Control Mix Circ Anticoag PTT Sodium Potassium Chloride Carbon Dioxide Anion Gap BUN Creatinine GFR Calculation BUN/Creatinine Ratio Glucose POC Glucose 92 Hemoglobin A1c Calculated Osmolality Calcium Total Bilirubin AST ALT Alkaline Phosphatase Troponin I < 0.015 B-Natriuretic Peptide Total Protein Albumin Globulin Albumin/Globulin Ratio Triglycerides Cholesterol LDL Cholesterol VLDL Cholesterol HDL Cholesterol Heart Disease Risk Ratio Lipase 04/19/17 07:27 WBC RBC Hgb Hct MCV MCH MCHC RDW Plt Count MPV Neut % (Auto) Lymph % (Auto) [place] % (Auto) Eos % (Auto) Baso % (Auto) Neut # (Auto) Lymph # (Auto) [place] # (Auto) Eos # (Auto) Baso # (Auto) Immature Gran % Nucleated RBC % Immature Gran # Nucleated RBCs # Immature Plt Fraction INR PT Patient/Control Mix Circ Anticoag PTT Sodium 145 Potassium 4.6 Chloride 114 H Carbon Dioxide 27 Anion Gap 8.6 BUN 39 H Creatinine 2.10 H GFR Calculation 30 BUN/Creatinine Ratio 18.00 Glucose 92 POC Glucose Hemoglobin A1c Calculated Osmolality 296.7 Calcium 8.5 Total Bilirubin AST ALT Alkaline Phosphatase Troponin I B-Natriuretic Peptide Total Protein Albumin Globulin Albumin/Globulin Ratio Triglycerides Cholesterol LDL Cholesterol VLDL Cholesterol HDL Cholesterol Heart Disease Risk Ratio Lipase - Diagnostic Findings Procedure: Chest x-ray: image reviewed by me, report reviewed by me, Ultrasound : image reviewed by me, report reviewed by me - EKG EKG results: interpreted by me, no acute changes EKG shows: sinus rhythm Karlos Gardner Attila, MD, personally performed the services described in this documentation, ascribed by Karina Walter RN in my presence, and it is both accurate and complete 755 .
[2017-04-19] MEDS: ATORVASTATIN 40 MG TABLET PO SCH (22:53)
[2017-04-19] MEDS: METOPROLOL TARTRATE 50 MG TABLET PO SCH (22:54)
[2017-04-20 07:46] LABS: Basophils # 0.1 10*3/uL (0.0-0.2); Basophils % 0.8 % (0.0-0.8); Eosinophils # 0.5 10*3/uL (0.0-0.87); Eosinophils % 5.5 % (0.00-10.9); Hematocrit 32.5 VOL% (35.7-47.0); Hemoglobin 10.6 GM/DL (12.0-16.0); Immature Granulocytes % 0.3 %; Immature Granulocytes Absolute 0.03 #; Lymphocytes # 2.3 10*3/uL (1.4-4.0); Lymphocytes % 25.3 % (21.3-54.2); Mean Corpuscular HGB Conc 32.6 GM/DL (32-36); Mean Corpuscular Hemoglobin 29 PG (27-34); Mean Platelet Volume 10.8 FL (9.6-12.0); Monocytes # 0.7 10*3/uL (0.11-0.8); Neutrophils # 5.5 10*3/uL (1.4-7.4); Neutrophils % 60.1 % (38.7-73.9); Platelet Count 140 T/CUMM (130-400); Red Blood Count 3.61 MC/CUMM (3.8-5.5); Red Cell Distribution Width 13.2 % (9.3-17.3); White Blood Count 9.2 T/CUMM (4-12)
[2017-04-20] MEDS ORDERED: REGADENOSON 0.4 MG/5 ML SYRINGE IV ONE (08:13)
[2017-04-20 08:19] LABS: Calcium 9.1 MG/DL (8.5-10.1); Potassium 4.7 MMOL/L (3.5-5.1)
--- NOTE | 2017-04-20 08:35 | Event Note ---
Patient admitted for atypical chest pain for Lexiscan Cardiolite due to left AKA. Prestress EKG notes T-wave inversions inferolaterally (leads II, 3, aVF, V5, V6). No significant EKG changes noted during test. She was noted to have additional T-wave inversions in lead I. Patient experienced mild nausea. No chest pain, heaviness, or tightness. Patient now to nuclear medicine for final scan. Dr. Everett to read, interpret, and advise.
--- NOTE | 2017-04-20 08:37 | Cardiology Progress Note ---
Assessment and Plan - Time spent with patient Time spent with patient: Less than 30 minutes (1) Atypical chest pain Status: Acute Assessment and plan: See plan of care listed below. Current Visit: Yes (2) History of coronary artery disease Status: Chronic Assessment and plan: See plan of care listed below. Current Visit: Yes (3) History of CVA (cerebrovascular accident) Status: Chronic Assessment and plan: See plan of care listed below. Current Visit: Yes (4) Anemia Status: Chronic Assessment and plan: See plan of care listed below. Current Visit: Yes (5) CKD (chronic kidney disease) Status: Chronic Assessment and plan: See plan of care listed below. Current Visit: Yes (6) Essential hypertension Status: Chronic Assessment and plan: See plan of care listed below. Current Visit: Yes (7) Diabetes mellitus Status: Chronic Assessment and plan: See plan of care listed below. Current Visit: No Qualifiers: Diabetes mellitus type: type 2 (8) Dyslipidemia Status: Chronic Assessment and plan: See plan of care listed below. 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 Arriaga is a 66-year-old BF who was admitted to the hospital with complaints of chest pain that started in her abdomen and radiated to her chest. This is accompanied by shortness of breath and occurred while at rest and while eating lunch. Her EKG and cardiac biomarkers were normal. She has a past medical history of hypertension, coronary artery disease (status post PTCA and stent of the mid RCA in 2008 followed by stenting in 2010 for in-stent restenosis), hyperlipidemia, insulin-dependent diabetes mellitus, chronic kidney disease, left AKA, and prior TIA. 2016: Due to her history of coronary artery disease and risk factors, Ms. Arriaga underwent Lexiscan Cardiolite this morning without difficulty. She had no significant EKG changes and denies any pain at the time of exam. Her echocardiogram shows mild LVH, ejection fraction 65%, grade 1 diastolic dysfunction, mildly enlarged left atrium, mild pulmonary hypertension. Will await results from stress test. Dr. Everett to follow with further plan and addendum. IMPRESSION/PLAN: 1. ATYPICAL CHEST PAIN: Results of stress test pending. If negative, would pursue evaluation for non-cardiac causes of her chest pain. Continue treatment for CAD with aspirin, beta bernice, statin. 2. HISTORY OF CAD: She is status post PTCA and stent of the mid RCA in 2009 followed by stenting in 2011 for in-stent restenosis. Continue ASA, beta bernice , statin. 3. HISTORY OF CVA: Previous lacunar CVA x3. Continue aspirin, statin, and Lovenox for DVT prophylaxis. 4. ANEMIA: H&H stable at 10.6 and 32.5. 5. CHRONIC KIDNEY DISEASE: Creatinine 2.0, appears to be around her baseline. Continue to avoid nephrotoxic agents. Daily BMP. 6. ESSENTIAL HYPERTENSION: Borderline pulmonary hypertension per echo. She was started on Metoprolol 50mg po BID. 7. DIABETES MELLITUS: Defer to attending for primary management. 8. DYSLIPIDEMIA: LDL 108. Atorvastatin increased to 40mg po nightly. Exam (Progress Note) - Constitutional Vitals: Period Temp Pulse Resp BP Sys/Cueva Pulse Ox Last 24 Hr 97.5 F-99.4 F 73-106 16-20 128-196/58-83 95-99 Exam: General appearance: Appears well. Pleasant and cooperative. Overweight, no acute distress. Head exam: Present: normal inspection, normocephalic, atraumatic. Absent: hematoma, laceration Eye exam: Present: EOMI. Absent: conjunctival injection, nystagmus, periorbital swelling, scleral icterus, laceration to eyelids, jaundice Pupils: Present: PERRL. Absent: constricted, dilated, fixed, irregular, unequal ENT exam: Present: normal exam, normal external ear exam, mucous membranes moist. Neck exam: Present: normal inspection, midline trachea. Absent: masses, lymphadenopathy, tenderness, thyromegaly, carotid bruit Respiratory exam: Present: clear to auscultation bilaterally. Absent: accessory muscle use, chest wall tenderness, rales, rhonchi, wheezing. Cardiovascular exam: Present: regular rate and rhythm. Absent: gallop, JVD, rubs, murmur GI/Abdominal exam: Present: normal bowel sounds, soft. Absent: distended, firm , hernia, mass, tenderness. Extremities exam: Present: Normal Gait, No Clubbing, No Cyanosis, Upper Extr. Pulses 2+, Right Lower Extr. Pulse 1-2+, No edema. Slight left arm weakness. Left AKA. Capillary refill less than 3 seconds. Musculoskeletal: Present: No Fluid Collection, No Pain, Normal Range of Motion Back exam: Present: normal inspection. Absent: muscle spasm, vertebral tenderness Neurological exam: Present: awake, alert, oriented X3, Moves all extremities well without hemiparesis or paralysis. Grossly intact without resting or essential tremor Psychiatric exam: Present: normal affect, normal mood Skin exam: Present: normal color, warm, dry, intact. Absent: cyanosis, diaphoretic, rash, urticaria Result/EKG - Labs CBC & BMP: 04/20/17 07:38 04/20/17 07:38 Lab Results: I have reviewed the past 24 hour labs Labs: Laboratory Results - last 24 hr 04/19/17 04/19/17 04/19/17 11:23 15:52 18:58 WBC RBC Hgb Hct MCV MCH MCHC RDW Plt Count MPV Neut % (Auto) Lymph % (Auto) [place] % (Auto) Eos % (Auto) Baso % (Auto) Neut # (Auto) Lymph # (Auto) [place] # (Auto) Eos # (Auto) Baso # (Auto) Immature Gran % Nucleated RBC % Immature Gran # Nucleated RBCs # Immature Plt Fraction Sodium Potassium Chloride Carbon Dioxide Anion Gap BUN Creatinine GFR Calculation BUN/Creatinine Ratio Glucose POC Glucose 93 170 H 185 H Calculated Osmolality Calcium 04/20/17 04/20/17 04/20/17 07:30 07:38 07:38 WBC 9.2 D RBC 3.61 L Hgb 10.6 L Hct 32.5 L MCV 90.0 MCH 29 MCHC 32.6 RDW 13.2 Plt Count 140 MPV 10.8 Neut % (Auto) 60.1 Lymph % (Auto) 25.3 [place] % (Auto) 8.0 Eos % (Auto) 5.5 Baso % (Auto) 0.8 Neut # (Auto) 5.5 Lymph # (Auto) 2.3 [place] # (Auto) 0.7 Eos # (Auto) 0.5 Baso # (Auto) 0.1 Immature Gran % 0.3 Nucleated RBC % 0.0 Immature Gran # 0.03 Nucleated RBCs # 0.00 Immature Plt Fraction 0.0 Sodium 143 Potassium 4.7 Chloride 112 H Carbon Dioxide 25 Anion Gap 10.7 BUN 29 H Creatinine 2.00 H GFR Calculation 32 BUN/Creatinine Ratio 14.00 Glucose 114 H POC Glucose 119 H Calculated Osmolality 291.0 Calcium 9.1 - EKG EKG results: interpreted by me, sinus rhythm
[2017-04-20] MEDS: BISACODYL 5 MG TABLET PO SCH ×2 (09:43→18:24)
[2017-04-20] MEDS: SERTRALINE 100 MG TABLET PO SCH (09:44)
[2017-04-20] MEDS: METOPROLOL TARTRATE 50 MG TABLET PO SCH ×2 (09:44→21:42)
[2017-04-20] MEDS: PANTOPRAZOLE 40 MG TABLET PO SCH ×2 (09:44→21:41)
--- NOTE | 2017-04-20 11:19 | Hospitalist Progress Note ---
Assessment and Plan (1) Left-sided weakness Status: Acute Assessment and plan: MRI of brain negative for any evidence of stroke. Current Visit: Yes (2) Shortness of breath Status: Acute Assessment and plan: Echocardiogram showed a normal EF with grade 1 diastolic dysfunction. Stress test today pending Current Visit: Yes (3) Anemia Status: Chronic Assessment and plan: Colonoscopy and EGD in a.m. Current Visit: Yes (4) Diabetes mellitus Status: Chronic Assessment and plan: Hgb A1c 7.3, blood sugars better today Current Visit: No Qualifiers: Diabetes mellitus type: type 2 (5) Chest pain Status: Acute Assessment and plan: Stress test today. EGD tomorrow Current Visit: Yes (6) Essential hypertension Status: Chronic Assessment and plan: Controlled Current Visit: Yes (7) CKD (chronic kidney disease) Status: Chronic Assessment and plan: Stable stage III renal disease Current Visit: Yes Hospitalist: Subjective Interval history: Patient had a stress test today by cardiology. No complaints today is weak. No longer confused. Exam - Constitutional Vitals: Period Temp Pulse Resp BP Sys/Cueva Pulse Ox Last 24 Hr 97.5 F-99.4 F 73-106 16-20 128-196/58-83 95-99 Exam: Heart Rate-[RRR] Lungs-[CTAB GI-[+bs soft, nontender, obese] Ext-[no edema] Neuro [Motor 5/5], [alert and oriented times 3] psych [normal mood and affect] General [no acute distress] Results - Labs CBC & BMP: 04/20/17 07:38 04/20/17 07:38 Lab Results: I have reviewed the past 24 hour labs
[2017-04-20] MEDS: INSULIN GLARGINE 100 UNIT/ML SUBCUT SCH (12:18)
[2017-04-20] MEDS ORDERED: POLYETHYLENE GLYCOL 3350/ELECTROLYTES 4,000 ML BOTTLE PEG ONE (16:00)
--- NOTE | 2017-04-20 16:09 | Nuclear Medicine Report ---
PHARMACOLOGICAL STRESS TEST Test is interpreted and dictated by Dr. Harsha Everett. INDICATION: Chest pain, history of CAD. PROCEDURE: At rest, 10 mCi of 99-Technetium labeled Sestamibi was injected and the rest images were obtained. A 0.4 mg Lexiscan was injected IV. Post pharmacological stress, Sestamibi of 30 mCi of 99-Technetium labeled Sestamibi was injected and post-stress images were obtained. FINDINGS: At rest, sinus rhythm, 79 beats per minute, [address] depression in II, III, aVF and V5 and V6. Post Lexiscan injection, sinus rhythm , 78 beats per minute, blood pressure 148/78 mmHg. The repolarization changes are unchanged. Mild nausea, but no chest pain. Rest and post pharmacological stress, gated and perfusion images were reviewed. End-diastolic volume 166, the end-systolic volume is 48 cc. The calculated left ejection fraction 64%. Gated images show an area of severely decreased thickening in the basal/mid inferior area with preserved systolic thickening in the remaining segments. Perfusion images show a small area in the basal inferior segments with severely decreased activity both at rest and post pharmacological stress. In addition, there is a small to moderate size area in the mid inferior segments, of mildly decreased activity at rest, which becomes moderately photopenic post pharmacological stress. This is suggestive of old inferior/posterior myocardial disease with superimposed ischemia. CONCLUSION: 1. Abnormal baseline EKG, with no significant changes post pharmacological stress. No chest pain. 2. Normal left ventricular size, with wall motion abnormalities as described above, with preserved ejection fraction. 3. 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 4. This is a moderate risk test. Procedure performed and interpreted at [facility] Department of Radiology. [facility]
[2017-04-20] MEDS ORDERED: POTASSIUM CHLORIDE RIDER 10 MEQ in PREMIX 1 EACH IV PRN (16:20)
[2017-04-20] MEDS ORDERED: MAGNESIUM SULF RIDER 2 GM in PREMIX 1 EACH IV PRN (16:20)
[2017-04-20] MEDS ORDERED: DIAZEPAM 5 MG TABLET PO ONE (16:29)
[2017-04-20] MEDS ORDERED: hydrALAZINE 20 MG/1 ML VIAL IV ONE (18:25)
[2017-04-20] MEDS ORDERED: SODIUM CHLORIDE 0.45% 1,000 ML IV SCH (21:00)
[2017-04-20] MEDS ORDERED: MAGNESIUM CITRATE 300 ML BOTTLE PO ONE (21:00)
[2017-04-20] MEDS: ATORVASTATIN 40 MG TABLET PO SCH (21:42)
[2017-04-21] MEDS: BISACODYL 5 MG TABLET PO SCH (01:17)
[2017-04-21 05:44] LABS: Basophils # 0.1 10*3/uL (0.0-0.2); Basophils % 0.6 % (0.0-0.8); Eosinophils # 0.3 10*3/uL (0.0-0.87); Hematocrit 31.6 VOL% (35.7-47.0); Hemoglobin 10.2 GM/DL (12.0-16.0); Immature Granulocytes % 0.5 %; Immature Granulocytes Absolute 0.04 #; Lymphocytes % 24.8 % (21.3-54.2); Mean Corpuscular HGB Conc 32.3 GM/DL (32-36); Mean Corpuscular Hemoglobin 29 PG (27-34); Mean Corpuscular Volume 89.3 FL (87-102); Mean Platelet Volume 12.1 FL (9.6-12.0); Monocytes # 0.7 10*3/uL (0.11-0.8); Neutrophils # 4.9 10*3/uL (1.4-7.4); Neutrophils % 61.1 % (38.7-73.9); Platelet Count 131 T/CUMM (130-400); Red Blood Count 3.54 MC/CUMM (3.8-5.5); Red Cell Distribution Width 13.1 % (9.3-17.3)
[2017-04-21] MEDS ORDERED: DIAZEPAM 5 MG TABLET PO ONE (06:00)
[2017-04-21] MEDS ORDERED: diphenhydrAMINE CAP 25 MG CAPSULE PO ONE (06:00)
[2017-04-21 06:15] LABS: Calcium 8.9 MG/DL (8.5-10.1); Potassium 3.9 MMOL/L (3.5-5.1)
[2017-04-21] MEDS ORDERED: DEXTROSE 50% 25 GM/50 ML SYRINGE IV ONE (06:29)
[2017-04-21] MEDS: METOPROLOL TARTRATE 50 MG TABLET PO SCH ×2 (08:26→20:27)
[2017-04-21] MEDS: PANTOPRAZOLE 40 MG TABLET PO SCH ×2 (08:27→20:27)
[2017-04-21] MEDS: ASPIRIN EC 81 MG TABLET PO SCH (08:27)
[2017-04-21] MEDS: INSULIN GLARGINE 100 UNIT/ML SUBCUT SCH (08:31)
[2017-04-21] MEDS: SERTRALINE 100 MG TABLET PO SCH (08:32)
[2017-04-21] MEDS ORDERED: LIDOCAINE 1%/EPI INJ 20 ML VIAL ONE (08:51)
[2017-04-21] MEDS ORDERED: HEPARIN/NACL 0.9% 2 UNITS/ML 1,000 ML IV ONE (08:51)
[2017-04-21] MEDS ORDERED: fentaNYL 100 MCG/2 ML VIAL ONE (09:10)
[2017-04-21] MEDS ORDERED: MIDAZOLAM 2 MG/2 ML VIAL ONE (09:10)
--- NOTE | 2017-04-21 09:21 | History and Physical Update ---
Sedation H&P Update - History and Physical H&P was reviewed, the patient examined and there: are no changes in the patients condition since last H&P was completed. - Sedation Plan for Sedation: moderate Patient Consent: Procedure disscussed with patient and patinet has consented., Risks and benefits were discussed with patient,including infection,, bleeding, injury to surrounding structures, seizure, temporary nerve, Patient understands and accepts potential risks/benefits and agrees to, proceed. ASA Class: III Airway Assessment: Class III: Soft palate, base of uvula visible
[2017-04-21] MEDS ORDERED: hydrALAZINE 20 MG/1 ML VIAL ONE (09:29)
[2017-04-21] MEDS ORDERED: ENOXAPARIN 60 MG/0.6 ML SYRINGE ONE (09:34)
[2017-04-21] MEDS ORDERED: CLOPIDOGREL 300 MG TABLET ONE (09:35)
--- NOTE | 2017-04-21 10:10 | Cardiac Catheterization ---
Date of Procedure:: 04/21/17 Pre-op Diagnosis: Patient with an abnormal perfusion study history of stenting of the right coronary with abnormal perfusion of the right coronary distribution. She is for diagnostic evaluation intervention if indicated Post-op diagnosis: same Procedure: Procedures performed: #1 left heart catheterization #2 coronary angiography #3 percutaneous intervention to the mid right coronary artery with a 2.25 x 24 mm synergy drug-eluting stent with a good angiographic result #4 left ventriculography #5 right femoral sheath angiography #6 Angio-Seal closure right femoral arteriotomy site After obtaining informed consent the patient brought to the Engineering Officer where the right groin was prepped and draped in the usual sterile manner. After local anesthesia and intravenous sedation a needle stick was made to the right femoral artery and a 6 Arabic sheath was positioned without difficulty. A Vivek left catheter was advanced over a guidewire under fluoroscopic control to the ascending aorta where angiography of left coronary artery was undertaken in multiple views. After adequate angiograms of the left coronary were obtained this catheter was withdrawn and an AMRM right coronary catheter was advanced over a guidewire under fluoroscopic control to the ascending aorta where angiography of the right coronary artery was undertaken in multiple views. After adequate angiograms of the right coronary were obtained this catheter was withdrawn and a the procedure below was performed for PCI of the mid right coronary artery. After completion of this procedure a pigtail ventriculographic catheter was advanced over a guidewire under fluoroscopic control to the ascending aorta where it was passed across the aortic valve and intraventricular hemodynamics were measured. Patient underwent left ventriculography injecting 35 mL of contrast at 12 mL/s. This was performed from the right anterior oblique projection. After ventriculography this catheter was pulled back from the ventricle to the aorta under hemodynamic monitoring and removed. We elected to proceed with percutaneous intervention of the right coronary artery. A Vivek right guide was advanced over a guidewire under fluoroscopic control to the ascending aorta where the right coronary artery was engaged. An 014 BMW wire was advanced to the distal right coronary artery and a 2.0 x 20 mm mini trek balloon was advanced to the area of stenosis in inflated to maximum 13 kasi. This balloon was then deflated and removed. A 2.25 x 24 mm Synergy drug- eluting stent was advanced to the area stenosis deployed to a maximum 16 kasi. There was good resolution of the stenosis with RAMANDEEP grade III flow down the vessel. The balloon and wire were pulled back into the guide repeat angiography confirmed good result. The wire and balloon were removed from the guide and the guide was then pulled from the sheath. The procedure then continued as outlined above using a pigtail catheter. The patient underwent right femoral sheath angiography which demonstrated anatomy appropriate for Mynx closure. This was performed without difficulty and good hemostasis was obtained. Hemodynamics: Please see the accompanying data sheet Coronary angiography: Left coronary artery: The left main coronary artery is well-developed and free of significant obstructing lesions. The circumflex coronary artery is a fairly large nondominant vessel consisting primarily of a large marginal branch. The distal circumflex is small. The mid marginal has areas of probably 50-70% stenosis with diffuse severe disease distally noted. The distal circumflex appears to be free of significant obstructing lesions. The left anterior descending coronary is a large vessel extends around the apex of the ventricle. There are several areas of haziness but no significant flow- limiting stenosis can be identified. The branches of the LAD likewise are free of significant obstructing lesions. Right coronary artery: Right coronary artery: Was a large dominant vessel has an intracoronary stent in its midportion. The stent is severely restenosed in its distal one half. There is RAMANDEEP grade II flow down the right coronary artery. There are 2 areas of 99% stenosis noted in the prior stented segment. Percutaneous intervention: After the above described procedure the lesion went from 80% stenotic to less than 0% stenotic post stent deployment. There is no evidence of dissection or compromise flow noted. There was RAMANDEEP grade 3 flow down the vessel. Left ventriculography: After injection of contrast in the left ventricle is noted be of normal size with normal contractility. Ejection fraction is estimated to be in the 60% range. There is mild basal hypokinesis. Mitral and aortic structures appear normal by ventriculography. Right femoral sheath angiography: After injection of contrast in the right femoral arterial sheath it appears to enter the common femoral above the bifurcation. No evidence of significant disease of the distal iliac, common femoral or bifurcation be noted based on this limited angiographic study. Conclusions: 1: Successful percutaneous intervention of the mid right coronary artery with a good angiographic result after a 2.25 x 24 mm Synergy drug-eluting stent 2: Diffuse circumflex disease for continued medical therapy. 3: Normal left ventricular size and function 4: Mynx closure right from arteriotomy site Discussion and recommendations: The patient presents with an abnormal perfusion study. She has restenosed a prior stent site and now is undergone stenting within the existing stent with a good angiographic result. She is going to watch for evidence of bleeding or recurring ischemia. Surgeon / Physician: Mundo Davenport - Medications / Follow-up
--- NOTE | 2017-04-21 10:23 | EKG Report ---
Stationary ECG Study [facility] Test Date: 04/21/2017 10:21:55 AM Pat Name: ASHLEY MELGAR Department: Room: 280 Gender: F [employer]: BERNARDA : 1950 Requested by: Mundo Davenport Order Number: [id number] Reading MD: MUNDO DAVENPORT Intervals [place] Rate: 72 P: 61 AL: 145 QRS: 26 QRSD: 94 T: -79 QT: 395 QTc: 419 Interpretive Statements SINUS RHYTHM ST DEVIATION AND MODERATE T-WAVE ABNORMALITY, CONSIDER LATERAL ISCHEMIA ST DEVIATION AND MODERATE T-WAVE ABNORMALITY, CONSIDER INFERIOR ISCHEMIA Electronically Signed On 04-21-17 17:11:07 CDT by MUNDO DAVENPORT [email or web address]
--- NOTE | 2017-04-21 12:53 | Gastrointestinal Progress Note ---
Assessment and Plan (1) Dysphagia, pharyngoesophageal Status: Acute Assessment and plan: The patient does have some difficulty swallowing and likely has atypical chest pain as a result of either spasm or esophagitis. We will assess this on Monday , 04/21/17 hopefully after cardiology is completed their evaluation. If she is not placed on interim anticoagulation we can certainly consider doing a esophageal dilation, likely to 57 Tamazight after ruling out esophageal cancer as a potential cause for her dysphagia. Other possibilities include esophageal spasm, reflux esophagitis, eosinophilic esophagitis and Schatzki's ring. Further recommendations post upper endoscopy and colonoscopy to occur Monday. Prep instructions written. Risks and benefits the above procedure were reviewed with the patient previously include but are not limited to: Bleeding, infection, perforation, cardiac and pulmonary compromise. Risk of perforation increases with dilation. 04/21/17--This patient was taken to cardiac catheterization today and underwent stent placement in the mid right coronary artery. This will require long-term anticoagulation for at least the next 6 months and unfortunately prevents us from performing her dilation and/or biopsies at this point in time. We can consider doing this [address] Would suggest a barium swallow should the patient develop more significant symptoms. Acid blocking medication is likely suggested in the interim. Current Visit: Yes (2) Generalized abdominal pain Status: Acute Assessment and plan: This patient does have what sounds like classic variant irritable bowel syndrome with mild alternating diarrhea and constipation. Will be performing colonoscopy mostly for colorectal cancer screening purposes and to see if we can find a cause for the patient's mild anemia. Her hematocrit is about 30%. Certainly the patient's low-grade pain may be associated with this IBS. Because of her diarrhea we might consider doing routine biopsies to the colon-- we will have to see what level of inflammation is present. 04/21/17--patient may have classic variant IBS symptoms, anemia, and upper GI irritation/gastritis, if she is not actively bleeding with suggest repeating upper endoscopy and lower endoscopy in 6 months after she is able to come off of anticoagulation. Patient was being worked up for anemia and this is coming from an unclear source at this point. We will plan on doing both upper and lower endoscopy in 6 months as mentioned--sooner if there is significant active bleeding. Current Visit: Yes (3) Anemia Status: Chronic Assessment and plan: Hematocrit is 30.2 with hemoglobin of 9.9, I have asked the nursing staff to place an NG tube for purposes of prepping patient tomorrow if needed. Given her symptoms I suspect it will be. She will be given a GoLYTELY prep in order to check the colon completely. 04/21/17--continue to observe the patient's hematocrit--currently the patient's hematocrit is 31.6 and has been in the stable range since her admission. Again further workup will have to wait until [address] Given the situation, will sign off at this time. Current Visit: Yes (4) Atypical chest pain Status: Acute Assessment and plan: As mentioned above the patient may have esophageal spasm, reflux esophagitis, eosinophilic esophagitis versus Schatzki's ring, performed upper endoscopy with dilation as needed. 04/21/17--we will treat with at least Protonix 40 mg daily prior to supper each day. Thank you for this interesting consult will plan on seeing back in the office in 6 months as there is little to do between now and then, as there is little to do from a GI standpoint. Current Visit: Yes Gastroenterology - PN: Subj Interval history: Patient is somnolent after undergoing cardiac catheterization which demonstrated significant stenosis requiring stent placement of the right coronary artery midsection, it is possible this may been feeding into the patient's nausea--this will require aggressive anticoagulation for the next 6 months, it will prevent us from doing our endoscopic evaluation: Evaluation so we will need to put these off for another 6 months, and treat symptomatically for the present time. Exam (Progress Note) - Constitutional Vitals: Period Temp Pulse Resp BP Sys/Cueva Pulse Ox Last 24 Hr 97.1 F-98.3 F 60-71 14-20 131-188/65-81 96-100 General appearance: mild distress - Head Head exam: Present: normal inspection - Eye Eye exam: Present: EOMI - Respiratory Respiratory exam: Present: clear to auscultation bilaterally - Cardiovascular Cardiovascular exam: Present: regular rate and rhythm - GI/Abdominal GI/Abdominal exam: Present: normal bowel sounds, tenderness (Epigastric region left lower quadrant), soft. Absent: distended, guarding, rebound - Extremities Exam Extremities exam: Present: edema - Neurological Exam Neurological exam: Present: alert, oriented X3 - Psychiatric Psychiatric exam: Present: normal affect, normal mood - Skin Skin exam: Present: warm Results - Labs CBC & BMP: 04/21/17 04:47 04/21/17 04:47 Specialty Discharge - Follow Up or Referrals
[2017-04-21] MEDS ORDERED: INSULIN GLARGINE 100 UNIT/ML SUBCUT SCH (15:51)
--- NOTE | 2017-04-21 15:52 | Hospitalist Progress Note ---
Assessment and Plan (1) Left-sided weakness Status: Acute Assessment and plan: MRI of brain negative for any evidence of stroke. Current Visit: Yes (2) Shortness of breath Status: Acute Assessment and plan: Echocardiogram showed a normal EF with grade 1 diastolic dysfunction. Stress test today positive. Current Visit: Yes (3) Anemia Status: Chronic Assessment and plan: Colonoscopy and EGD in 6 months, transfuse as needed Current Visit: Yes (4) Diabetes mellitus Status: Chronic Assessment and plan: Hgb A1c 7.3, blood sugars too low decrease Lantus in half Current Visit: No Qualifiers: Diabetes mellitus type: type 2 (5) Chest pain Status: Acute Assessment and plan: Stress test positive. Status post cardiac cath by Dr. gama stent was placed in the mid RCA Current Visit: Yes (6) Essential hypertension Status: Chronic Assessment and plan: Not controlled we will add Norvasc to metoprolol Current Visit: Yes (7) CKD (chronic kidney disease) Status: Chronic Assessment and plan: Stable stage III renal disease, continue to observe after cardiac cath due to the dye received Current Visit: Yes Hospitalist: Subjective Interval history: Patient had a positive stress test yesterday and underwent a heart cath today. Her EGD and colonoscopy cannot be done for approximately 6 months. We will continue to observe her anemia and transfuse as needed. Exam - Constitutional Vitals: Period Temp Pulse Resp BP Sys/Cueva Pulse Ox Last 24 Hr 97.1 F-98.3 F 60-71 14-20 121-188/51-81 96-100 Exam: Heart Rate-[RRR] Lungs-[CTAB GI-[+bs soft, nontender, obese] Ext-[no edema] Neuro [Motor 5/5], [alert and oriented times 3] psych [normal mood and affect] General [no acute distress] Results - Labs CBC & BMP: 04/21/17 04:47 04/21/17 04:47 Lab Results: I have reviewed the past 24 hour labs Quality Measures - VTE Contraindication to Pharmacological VTE Prophylaxis: High Risk of Bleeding Specialty Discharge - Follow Up or Referrals
[2017-04-21] MEDS: amLODIPine 5 MG TABLET PO SCH (16:57)
[2017-04-21] MEDS: ATORVASTATIN 40 MG TABLET PO SCH (20:27)
[2017-04-22 06:11] LABS: Basophils # 0.1 10*3/uL (0.0-0.2); Basophils % 0.7 % (0.0-0.8); Eosinophils # 0.4 10*3/uL (0.0-0.87); Eosinophils % 5.9 % (0.00-10.9); Hematocrit 31.5 VOL% (35.7-47.0); Hemoglobin 10.3 GM/DL (12.0-16.0); Immature Granulocytes % 0.3 %; Immature Granulocytes Absolute 0.02 #; Lymphocytes # 1.9 10*3/uL (1.4-4.0); Lymphocytes % 27.3 % (21.3-54.2); Mean Corpuscular HGB Conc 32.7 GM/DL (32-36); Mean Corpuscular Hemoglobin 29 PG (27-34); Mean Corpuscular Volume 88.2 FL (87-102); Mean Platelet Volume 11.6 FL (9.6-12.0); Monocytes # 0.6 10*3/uL (0.11-0.8); Neutrophils % 56.8 % (38.7-73.9); Platelet Count 124 T/CUMM (130-400); Red Blood Count 3.57 MC/CUMM (3.8-5.5); Red Cell Distribution Width 13.2 % (9.3-17.3); White Blood Count 7.1 T/CUMM (4-12)
[2017-04-22 06:46] LABS: Calcium 8.8 MG/DL (8.5-10.1); Osmolality,Calculated 282.3 MOS/KG (273-304); Potassium 4.2 MMOL/L (3.5-5.1)
--- NOTE | 2017-04-22 08:05 | EKG Report ---
Stationary ECG Study [facility] Test Date: 04/22/2017 8:04:25 AM Pat Name: ASHLEY MELGAR Department: Room: 280 Gender: F [employer]: BERNARDA : 1950 Requested by: Mundo Davenport Order Number: [id number] Reading MD: MUNDO DAVENPORT Intervals [place] Rate: 65 P: 48 SD: 153 QRS: 34 QRSD: 95 T: -58 QT: 425 QTc: 437 Interpretive Statements SINUS RHYTHM POSSIBLE INFERIOR MYOCARDIAL INFARCTION, OF INDETERMINATE AGE MODERATE T-WAVE ABNORMALITY, CONSIDER LATERAL ISCHEMIA Electronically Signed On 04-22-17 11:22:18 CDT by MUNDO DAVENPORT [email or web address]
[2017-04-22] MEDS ORDERED: CLOPIDOGREL 75 MG TABLET PO SCH (09:00)
[2017-04-22] MEDS: amLODIPine 5 MG TABLET PO SCH (09:37)
[2017-04-22] MEDS: ASPIRIN EC 81 MG TABLET PO SCH (09:37)
[2017-04-22] MEDS: PANTOPRAZOLE 40 MG TABLET PO SCH (09:37)
[2017-04-22] MEDS: METOPROLOL TARTRATE 50 MG TABLET PO SCH (09:37)
[2017-04-22] MEDS: SERTRALINE 100 MG TABLET PO SCH (09:37)
--- NOTE | 2017-04-22 10:48 | Discharge Summary ---
Hospital Course - Hospital Course Hospital Course: Ms. Arriaga is a 66 year old female brought to the ED via EMS with CC of CP that began 1100 this AM when she was just sitting down at home eating. 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 Patient's serial cardiac and were mildly positive. Patient had a positive stress test was taken to the cardiac Vacuum Forming Machine Operator by Dr. Davenport yesterday. Patient had right rca stent. Bill had seen her and wanted to do an EGD and colonoscopy to research her problems with dysphasia and also her problems with anemia. Because she has to be on Plavix and aspirin he has decided to wait for 6 months until the stent is stable and she can be off Plavix long enough to have the EGD and colonoscopy. She feels great today and wants to go home. We have asked home health to come in and help including the nurse and physical therapy I also wanted to have her hemoglobin checked weekly. She needs to follow-up with her regular doctor Dr. Corea, Dr. Cardona and Dr. Davenport. Echocardiogram showed a normal EF with only grade 1 diastolic dysfunction nothing to suggest congestive heart failure. She does have hypertension which is better controlled. She has stable stage III renal disease. Her anemia is currently stable. She had some left-sided weakness that is since resolved and her MRI was negative for any evidence of stroke. Patient is stable for discharge. - Time spent with patient Time with patient DS: Greater than 30 minutes (45 min) Diagnosis - Discharge Diagnosis (1) Left-sided weakness Status: Acute (2) Shortness of breath Status: Acute (3) Anemia Status: Chronic (4) Diabetes mellitus Status: Chronic (5) Chest pain Status: Acute (6) Essential hypertension Status: Chronic (7) CKD (chronic kidney disease) Status: Chronic Specialty Discharge - Follow Up or Referrals Discharge Plan - Discharge Data Disposition: Home Health Service Condition at Discharge: Stable Discharge Diet: diabetic diet Activity: resume usual activities as tolerated Hygiene: no restrictions - Discharge Medications New Aspirin EC Tab 81 mg PO DAILY tablet Atorvastatin [Lipitor] 40 mg PO BEDTIME #30 tablet Clopidogrel [Plavix] 75 mg PO DAILY #30 tablet Metoprolol Tartrate Tab [Lopressor Tab] 50 mg PO BID #60 tablet amLODIPine [Norvasc] 5 mg PO DAILY #30 tablet hydrALAZINE TAB [Apresoline Tab] 25 mg PO BID #60 tablet Continue Pantoprazole Tab [Protonix Tab] 40 mg PO AC SUPPER Sertraline HCl 150 mg PO QAM Loratadine Tab [Claritin Tab] 10 mg PO DAILY PRN PRN Reason: Allergy Symptoms Discontinued hydroCHLOROthiazide [Hydrochlorothiazide] 25 mg PO QAM Aspirin EC Tab 81 mg PO QAM Valsartan 320 mg PO QAM Insulin Detemir [Levemir] 25 units SUBCUT BEDTIME hydrALAZINE TAB [Apresoline Tab] 100 mg PO BID Atorvastatin [Lipitor] 20 mg PO BEDTIME - Follow Up or Referral Follow Up: dr shane [Other] - 2 Weeks Mundo Davenport MD [Physician] - 2 Weeks Alejandro Cardona MD [Physician] - 1 Month - Forms/Instructions Instructions: Left Heart Catheterization (DC), Heart Healthy Diet (GEN), Coronary Intravascular Stent Placement (DC) Additional Discharge Instructions: home health with weekly hemoglobin called to her PMD Exam - Constitutional Vitals: Period Temp Pulse Resp BP Sys/Cueva Pulse Ox Last 24 Hr 97.2 F-98.1 F 62-71 14-20 121-164/51-81 96-100 General appearance: normal weight, no acute distress - Respiratory Respiratory exam: Present: clear to auscultation bilaterally - Cardiovascular Cardiovascular exam: Absent: regular rate and rhythm, systolic murmur - GI/Abdominal GI/Abdominal exam: Present: normal bowel sounds, soft - Extremities Exam Extremities exam: Present: normal inspection, normal capillary refill - Neurological Exam Neurological exam: Present: alert, oriented X3 - Psychiatric Psychiatric exam: Present: normal affect, normal mood Discharge Results Procedures and tests throughout hospitalization: Pending Orders 04/21/17 07:00 CL heart Routine 04/23/17 04:00 Basic Metabolic Panel IN AM 04/24/17 04:00 Basic Metabolic Panel IN AM Labs on day of discharge: Labs from last 24 hours 04/22/17 04/22/17 04/22/17 08:30 05:12 05:12 WBC 7.1 RBC 3.57 L Hgb 10.3 L Hct 31.5 L MCV 88.2 MCH 29 MCHC 32.7 RDW 13.2 Plt Count 124 L MPV 11.6 Neut % (Auto) 56.8 Lymph % (Auto) 27.3 Mills % (Auto) 9.0 Eos % (Auto) 5.9 Baso % (Auto) 0.7 Neut # (Auto) 4.0 Lymph # (Auto) 1.9 Mills # (Auto) 0.6 Eos # (Auto) 0.4 Baso # (Auto) 0.1 Immature Gran % 0.3 Nucleated RBC % 0.0 Immature Gran # 0.02 Nucleated RBCs # 0.00 Immature Plt Fraction 0.0 Sodium 141 Potassium 4.2 Chloride 112 H Carbon Dioxide 24 Anion Gap 9.2 BUN 25 H Creatinine 2.10 H GFR Calculation 30 BUN/Creatinine Ratio 11.00 Glucose 67 L POC Glucose 180 H Calculated Osmolality 282.3 Calcium 8.8 Troponin I 04/22/17 04/21/17 04/21/17 05:12 19:43 18:54 WBC RBC Hgb Hct MCV MCH MCHC RDW Plt Count MPV Neut % (Auto) Lymph % (Auto) Mills % (Auto) Eos % (Auto) Baso % (Auto) Neut # (Auto) Lymph # (Auto) Mills # (Auto) Eos # (Auto) Baso # (Auto) Immature Gran % Nucleated RBC % Immature Gran # Nucleated RBCs # Immature Plt Fraction Sodium Potassium Chloride Carbon Dioxide Anion Gap BUN Creatinine GFR Calculation BUN/Creatinine Ratio Glucose POC Glucose 142 H Calculated Osmolality Calcium Troponin I 0.145 H 0.137 H D 04/21/17 04/21/17 04/21/17 16:30 14:54 14:19 WBC RBC Hgb Hct MCV MCH MCHC RDW Plt Count MPV Neut % (Auto) Lymph % (Auto) Mills % (Auto) Eos % (Auto) Baso % (Auto) Neut # (Auto) Lymph # (Auto) Mills # (Auto) Eos # (Auto) Baso # (Auto) Immature Gran % Nucleated RBC % Immature Gran # Nucleated RBCs # Immature Plt Fraction Sodium Potassium Chloride Carbon Dioxide Anion Gap BUN Creatinine GFR Calculation BUN/Creatinine Ratio Glucose POC Glucose 93 96 83 Calculated Osmolality Calcium Troponin I 04/21/17 10:40 WBC RBC Hgb Hct MCV MCH MCHC RDW Plt Count MPV Neut % (Auto) Lymph % (Auto) Mills % (Auto) Eos % (Auto) Baso % (Auto) Neut # (Auto) Lymph # (Auto) Mills # (Auto) Eos # (Auto) Baso # (Auto) Immature Gran % Nucleated RBC % Immature Gran # Nucleated RBCs # Immature Plt Fraction Sodium Potassium Chloride Carbon Dioxide Anion Gap BUN Creatinine GFR Calculation BUN/Creatinine Ratio Glucose POC Glucose Calculated Osmolality Calcium Troponin I < 0.015 DS: Provider Date of admission: 04/21/17 11:58 Primary care physician: Ashley Edwards MD Attending physician on admission: Thee Potts MD Consults: 04/18/17 18:33 Consult to Case Mgmt/Social Srvs [CONS] Routine Reason for Case Mgmt/Social Srvs: Discharge Planning Consult to Occupational Therapy [CONS] Routine Reason for Occupational Therapy: Evaluate and Treat Consult Comment: Stroke Consult to Physical Therapy [CONS] Routine Reason for Physical Therapy: Evaluate and Treat Consult Comment: stroke Consult to Physician [CONS] Routine Comment: sleep apnea eval Consulting Provider: Serina Wray 04/18/17 18:34 Consult to Physician [CONS] Routine Comment: atypical chest pain, hx of multiple MIs Consulting Provider: Harsha Everett Consult to Specialist Group: Neurology Person Notified: Aryan Date Notified: 04/19/17 Time Notified: 08:00 04/19/17 08:14 Consult to Case Mgmt/Social Srvs [CONS] Routine Reason for Case Mgmt/Social Srvs: Swingbed/SNF/Half-Way 04/19/17 09:22 Consult to Physician [CONS] Routine Comment: possible stroke Consulting Provider: Young Tinoco Person Notified: Fatou Date Notified: 04/19/17 Time Notified: 11:55 04/19/17 13:57 Consult to Physician [CONS] Routine Comment: Consulting Provider: Alejandro Cardona 04/19/17 14:52 Consult to Anesthesiology [CONS] Routine Consulting Provider: Reason for Anesthesiology: Pre-op Clearance 04/21/17 10:11 Consult to Cardiac Rehabilitation [CONS] Routine Reason for Cardiac Rehabilitation: Risk Factor Modification Other Consult Comment: Evaluate and recommend 04/22/17 10:22 Consult to Case Mgmt/Social Srvs [CONS] Routine Reason for Case Mgmt/Social Srvs: Home Health Other Consult Comment: Home PT, Hemoglobin check weekly, oncology social work, and meals on wheels Discharging clinician: Lakesha Hill MD
[2017-04-22] MEDS ORDERED: FUROSEMIDE 20 MG/2 ML VIAL IV ONE (11:51)
--- NOTE | 2017-04-22 12:28 | Cardiology Progress Note ---
Assessment and Plan (1) Atypical chest pain Status: Acute Assessment and plan: 66-year-old BF with PMHx HTN, CAD, HLD, IDDM, CKD, CVA, and TIA. Previous PCI of RCA with multiple stents, last one in 2010. Preserved LV function. Now presents with atypical chest pain and some shortness of breath. EKG and cardiac biomarkers have been normal. 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 04/21: RCA PCI, dr. Davenport 1. Crescendo angina. Successful RCA PCI. Continue aspirin, Plavix, metoprolol , statin 2. Hypertension, diastolic dysfunction, elevated EDP, shortness of breath, CKD. I will ask the nurse to contact Dr. Hill, to add Lasix 20 mg daily to the discharge summary. 3. Follow-up with cardiology in 2 weeks. Post-cath activity limitations were discussed Current Visit: Yes (2) History of coronary artery disease Status: Chronic Assessment and plan: SEE PLAN OF CARE LISTED ABOVE. Current Visit: Yes (3) History of CVA (cerebrovascular accident) Status: Chronic Assessment and plan: SEE PLAN OF CARE LISTED ABOVE. Current Visit: Yes (4) Anemia Status: Chronic Assessment and plan: SEE PLAN OF CARE LISTED ABOVE. Current Visit: Yes (5) CKD (chronic kidney disease) Status: Chronic Assessment and plan: SEE PLAN OF CARE LISTED ABOVE. Current Visit: Yes (6) Essential hypertension Status: Chronic Assessment and plan: SEE PLAN OF CARE LISTED ABOVE. Current Visit: Yes (7) Diabetes mellitus Status: Chronic Assessment and plan: SEE PLAN OF CARE LISTED ABOVE. Current Visit: No Qualifiers: Diabetes mellitus type: type 2 (8) Dyslipidemia Status: Chronic Assessment and plan: SEE PLAN OF CARE LISTED ABOVE. Current Visit: Yes Cardiology - PN: Subj Interval history: Uneventful RCA PCI. She is here has occasional dyspnea. No groin hematoma. Exam (Progress Note) - Constitutional Vitals: Period Temp Pulse Resp BP Sys/Cueva Pulse Ox Last 24 Hr 97.2 F-98.1 F 62-71 14-20 121-164/51-81 96-100 General appearance: no acute distress, over weight - Head Head exam: Present: normal inspection - Eye Eye exam: Absent: conjunctival injection, laceration to eyelids Pupils: Absent: dilated - ENT ENT exam: Present: normal external ear exam - Neck Neck exam: Present: normal inspection - Respiratory Respiratory exam: Present: clear to auscultation bilaterally. Absent: chest wall tenderness - Cardiovascular Cardiovascular exam: Present: regular rate and rhythm, systolic murmur. Absent : JVD - GI/Abdominal GI/Abdominal exam: Present: normal bowel sounds. Absent: distended - Extremities Exam Extremities exam: Present: normal inspection, normal capillary refill, other ( No groin hematoma). Absent: edema - Back Exam Back exam: Present: normal inspection - Neurological Exam Neurological exam: Present: alert, oriented X3 - Psychiatric Psychiatric exam: Present: normal affect, normal mood - Skin Skin exam: Present: normal color, warm. Absent: cyanosis Result/EKG - Labs CBC & BMP: 04/22/17 05:12 04/22/17 05:12 Lab Results: I have reviewed the past 24 hour labs Labs: Laboratory Results - last 24 hr 04/21/17 04/21/17 04/21/17 14:19 14:54 16:30 WBC RBC Hgb Hct MCV MCH MCHC RDW Plt Count MPV Neut % (Auto) Lymph % (Auto) [place] % (Auto) Eos % (Auto) Baso % (Auto) Neut # (Auto) Lymph # (Auto) [place] # (Auto) Eos # (Auto) Baso # (Auto) Immature Gran % Nucleated RBC % Immature Gran # Nucleated RBCs # Immature Plt Fraction Sodium Potassium Chloride Carbon Dioxide Anion Gap BUN Creatinine GFR Calculation BUN/Creatinine Ratio Glucose POC Glucose 83 96 93 Calculated Osmolality Calcium Troponin I 04/21/17 04/21/17 04/22/17 18:54 19:43 05:12 WBC RBC Hgb Hct MCV MCH MCHC RDW Plt Count MPV Neut % (Auto) Lymph % (Auto) [place] % (Auto) Eos % (Auto) Baso % (Auto) Neut # (Auto) Lymph # (Auto) [place] # (Auto) Eos # (Auto) Baso # (Auto) Immature Gran % Nucleated RBC % Immature Gran # Nucleated RBCs # Immature Plt Fraction Sodium Potassium Chloride Carbon Dioxide Anion Gap BUN Creatinine GFR Calculation BUN/Creatinine Ratio Glucose POC Glucose 142 H Calculated Osmolality Calcium Troponin I 0.137 H D 0.145 H 04/22/17 04/22/17 04/22/17 05:12 05:12 08:30 WBC 7.1 RBC 3.57 L Hgb 10.3 L Hct 31.5 L MCV 88.2 MCH 29 MCHC 32.7 RDW 13.2 Plt Count 124 L MPV 11.6 Neut % (Auto) 56.8 Lymph % (Auto) 27.3 [place] % (Auto) 9.0 Eos % (Auto) 5.9 Baso % (Auto) 0.7 Neut # (Auto) 4.0 Lymph # (Auto) 1.9 [place] # (Auto) 0.6 Eos # (Auto) 0.4 Baso # (Auto) 0.1 Immature Gran % 0.3 Nucleated RBC % 0.0 Immature Gran # 0.02 Nucleated RBCs # 0.00 Immature Plt Fraction 0.0 Sodium 141 Potassium 4.2 Chloride 112 H Carbon Dioxide 24 Anion Gap 9.2 BUN 25 H Creatinine 2.10 H GFR Calculation 30 BUN/Creatinine Ratio 11.00 Glucose 67 L POC Glucose 180 H Calculated Osmolality 282.3 Calcium 8.8 Troponin I 04/22/17 10:57 WBC RBC Hgb Hct MCV MCH MCHC RDW Plt Count MPV Neut % (Auto) Lymph % (Auto) [place] % (Auto) Eos % (Auto) Baso % (Auto) Neut # (Auto) Lymph # (Auto) [place] # (Auto) Eos # (Auto) Baso # (Auto) Immature Gran % Nucleated RBC % Immature Gran # Nucleated RBCs # Immature Plt Fraction Sodium Potassium Chloride Carbon Dioxide Anion Gap BUN Creatinine GFR Calculation BUN/Creatinine Ratio Glucose POC Glucose 162 H Calculated Osmolality Calcium Troponin I - EKG EKG results: interpreted by me Quality Measures - VTE Contraindication to Pharmacological VTE Prophylaxis: High Risk of Bleeding Specialty Discharge - Follow Up or Referrals Follow up with: dr shane [Other] - 2 Weeks Alejandro Cardona MD [Physician] - 1 Month Mundo Davenport MD [Physician] - 2 Weeks
[2017-04-22 12:35] VITALS: BP 147/74
[2017-04-22] MEDS ORDERED: FUROSEMIDE 20 MG TABLET PO ONE (13:40)
== END 2017-04-22 14:07 | disposition home health service (06) | DRG 247 ==
LOC: EDBD → EDUNIT# → N.ED 15:30 → N.EDINP 15:30 → SUATTDRO 18:07 → OBSVTOIN 18:07 → N.TELEN 19:03 → UNDODISIN 04-22 14:07
PROVIDERS: ADMIT Internal Medicine; ATTEND Internal Medicine
PROC: CLCCHCL (ICD-10-PCS; 2017-04-21 10:15)